=== PATIENT | male | born 1950 | race Caucasian/White ===

== ENCOUNTER 2019-05-12 06:57 | Day surgery (SDC) ==
[2019-04-30 09:24] LABS: BASO# 0.05 X1000 (0.0-0.2); BASO% 0.5 % (0.0-0.8); EOS# 0.07 X1000 (0.0-0.7); EOS% 0.7 % (0.0-10.0); HEMATOCRIT 43.4 % (42.0-52.0); HEMOGLOBIN 14.1 g/dL (14.0-18.0); IMM GRAN# 0.03 X1000 (0.0-0.04); IMM GRAN% 0.3 % (0.0-0.5); LYMPH# 2.87 X1000 (1.2-3.4); LYMPH% 26.9 % (20.5-51.1); MCH 28.7 PG (27-31); MCHC 32.5 g/dL (33-37); MCV 88.4 FL (81-99); MONO# 0.65 X1000 (0.11-0.59); MONO% 6.1 % (1.7-9.3); MPV 12.1 FL (7.4-10.4); NEUT# 7.01 X1000 (1.4-6.5); NEUT% 65.5 % (42.2-75.2); PLT 186 X1000 (130-400); RBC 4.91 XMIL (4.7-6.1); RDW 14.8 % (11.5-14.5); WBC 10.68 X1000 (4.8-10.8)
[2019-04-30 09:27] LABS: BILIRUBIN URINE NEGATIVE (NEGATIVE); BLOOD URINE NEGATIVE (NEGATIVE); COLOR YELLOW; GLUCOSE URINE NEGATIVE (NEGATIVE); KETONE URINE NEGATIVE (NEGATIVE); LEUKOCYTES URINE NEGATIVE (NEGATIVE); NITRITE URINE NEGATIVE (NEGATIVE); PROTEIN URINE NEGATIVE (NEGATIVE); TURBIDITY URINE CLEAR (CLEAR); URINE SOURCE CLEAN CATCH; UROBILINOGEN URINE 2 mg/dL (NORMAL)
[2019-04-30 09:30] LABS: UR EPITHELIAL CELLS <10 /HPF (<10); URINE BACTERIA NEGATIVE /HPF; URINE RBC <10 /HPF (<10); URINE WBC <10 /HPF (<10)
[2019-04-30 09:36] LABS: INR 1.09; PROTIME 14.3 Seconds (11.0-16.0); PTT 26.6 Seconds (22.3-41.8)
[2019-04-30 10:13] LABS: HEMOGLOBIN A1C 5.5 % (4.8-6.0)
[2019-04-30 10:53] LABS: CALCIUM 9.3 mg/dL (8.8-10.2); CREATININE 1.5 mg/dL (0.7-1.2); POTASSIUM 3.8 mmol/L (3.5-5.1)
[2019-05-12] MEDS ORDERED: DIPRIVAN 1% ONE ×2 (07:08→10:26)
[2019-05-12] MEDS ORDERED: FENTANYL ONE (07:14)
[2019-05-12] MEDS ORDERED: PEPCID ONE (07:32)
[2019-05-12] MEDS ORDERED: REGLAN ONE (07:32)
[2019-05-12] MEDS ORDERED: COLACE ONE (07:32)
[2019-05-12] MEDS ORDERED: LR 1,000 ML ONE (07:33)
[2019-05-12] MEDS ORDERED: KEFZOL 1 GM/D5W 2 GM/100 ML IVPB ONE (07:33)
[2019-05-12] MEDS ORDERED: CELEBREX ONE (07:33)
[2019-05-12] MEDS ORDERED: LYRICA ONE (07:33)
[2019-05-12] MEDS ORDERED: TORADOL ONE (08:24)
[2019-05-12] MEDS ORDERED: DURAMORPH ONE (08:24)
[2019-05-12] MEDS ORDERED: MARCAINE 0.25% PF ONE (08:24)
[2019-05-12] MEDS ORDERED: CYKLOKAPRON 1,000 MG/NS 1,000 MG/100 ML IVPB ONE (08:25)
[2019-05-12] MEDS ORDERED: VANCOMYCIN ONE (08:25)
[2019-05-12] MEDS ORDERED: SODIUM CHLORIDE 0.9% ONE (08:25)
[2019-05-12] MEDS ORDERED: EXPAREL 1.3% ONE (08:26)
[2019-05-12] MEDS ORDERED: ZOFRAN ONE (09:36)
[2019-05-12] MEDS ORDERED: OFIRMEV 1000 MG/ISOTONIC SOLN 1,000 MG/100 ML BOTTLE ONE (09:36)
[2019-05-12] MEDS ORDERED: DECADRON ONE (09:36)
[2019-05-12] MEDS ORDERED: EPHEDRINE ONE (09:36)
[2019-05-12 10:54] LABS: URINE SOURCE CLEAN CATCH
[2019-05-12 10:57] LABS: BILIRUBIN URINE NEGATIVE (NEGATIVE); BLOOD URINE NEGATIVE (NEGATIVE); COLOR YELLOW; GLUCOSE URINE NEGATIVE (NEGATIVE); KETONE URINE NEGATIVE (NEGATIVE); LEUKOCYTES URINE NEGATIVE (NEGATIVE); NITRITE URINE NEGATIVE (NEGATIVE); PH URINE 7.5; PROTEIN URINE NEGATIVE (NEGATIVE); SP GRAVITY URINE 1.016; TURBIDITY URINE CLEAR (CLEAR); UROBILINOGEN URINE NORMAL (NORMAL)
[2019-05-12 10:59] LABS: UR EPITHELIAL CELLS <10 /HPF (<10); URINE BACTERIA NEGATIVE /HPF; URINE RBC <10 /HPF (<10); URINE WBC <10 /HPF (<10)
[2019-05-12] MEDS ORDERED: NS 1,000 ML ONE (11:44)
--- NOTE | 2019-05-12 11:48 | OPERATIVE NOTE ---
PROCEDURE DATE: 05/12/2019 PREOPERATIVE DIAGNOSIS: Right knee degenerative joint disease. POSTOPERATIVE DIAGNOSIS: Right knee degenerative joint disease. PROCEDURE PERFORMED: Right total knee arthroplasty using [facility] size 7 femoral component, a size 8 tibial baseplate, a 12 mm articular insert, and a 38 mm patellar component. ANESTHESIA: Spinal. SURGEON: Ravi Last MD. ANVIL WORKER: SIL Cartagena. COMPLICATIONS: None. BLOOD LOSS: Minimal. TOURNIQUET TIME: Approximately 1 hour. DESCRIPTION OF PROCEDURE: The patient was brought to the operative suite and placed in the supine position. After successful administration of spinal anesthesia, a well-padded tourniquet was placed on the right proximal thigh. The right lower extremity was prepped and draped in the usual sterile fashion. Leg was exsanguinated. Tourniquet was insufflated to 350 torr. A longitudinal incision was then made beginning at the superior pole of the patella and extended distally to the tibial tuberosity. The medial arthrotomy was then made with the medial capsule elevated off the medial tibial plateau. The ACL, PCL, medial meniscus, and lateral meniscus were excised. A drill was entered in the center of the distal femur. Intramedullary guide was placed. Distal cutting block was pinned into place. The distal cut was made with the oscillating saw. Marginal osteophytes were removed with a rongeur. Attention was then directed to the tibia. A drill was entered in the center of the tibia. Intramedullary guide was placed. The line was checked with drop amy, referencing off the anterior cortex of the tibia and the second ray of the foot, taking 4 mm off the low side of the tibia which, in this case, was laterally. The extension gap was checked and balanced at 12 mm. Flexion gap was set to 21 to account for the posterior condyle of the femoral component. Once the rotation was set, it was sized to a size 7. A size 7 cutting block was pinned in place. The anterior cuts, chamfer cuts, and posterior condylar cuts were made with the oscillating saw. Marginal osteophytes were removed with a rongeur. A box cutting block was pinned into place. Box cut was made a box osteotome and oscillating saw. Posterior condylar osteophytes were removed with a curved osteotome and rongeur. Attention was then directed back to the tibia. The tibia sized to a size 8. A size 8 guide was used for the fin punch. Marginal osteophytes were removed. The tibial trial, femoral trial, and 12 mm articular insert were placed, taken through a range of motion, and found have excellent alignment, balancing, and range of motion. Attention was then directed to the patella. Then 9 mm of the articular surface of patella were removed with an oscillating saw. The patella sized to a size 38. A size 38 guide was used to drill the peg holes. The lateral facet was chamfered 30 to 45 degrees. The patellar trial was placed, taken through a range of motion, and found to have excellent patella tracking. All trials were then removed. The knee was copiously irrigated with normal saline containing irrigant, being certain all bone and cement debris was removed, and then it was dried. The tibial component, femoral component, and patellar component were cemented into place, excess cement being removed with a [place]. Once the cement had hardened, excess cement was again removed with an osteotome. The knee was again copiously irrigated and dried, being certain all bone debris was removed and cement debris. The trial articular insert was removed. The knee was copiously infiltrated with Exparel including the posterior capsule, anterior capsule, anterior musculature, and subcutaneous tissue. The tourniquet was deflated. Hemostasis was obtained with electrocautery but it continued to bleed posteriorly when it was brought out into extension. Therefore, we placed a drain, exiting superolaterally. The definitive articular insert was locked in place. The knee was again copiously irrigated with normal saline containing irrigant and Vashe irrigation. The medial arthrotomy was closed with 0 V-Loc. The skin edge was approximated with 2-0 Vicryl. Skin was closed with Prineo and a sterile dressing applied. The patient tolerated the procedure well without complications. At the end of the procedure, all counts were correct x2. The patient was transferred to the recovery room in stable condition. cc: Ravi Last MD
[2019-05-12] MEDS: DILAUDID ONE ×2 (11:57→12:00)
[2019-05-12] MEDS ORDERED: MILK OF MAGNESIA PO PRN (12:45)
[2019-05-12] MEDS ORDERED: ZOFRAN ODT PO PRN (12:45)
[2019-05-12] MEDS ORDERED: OXY IR PO PRN ×2 (12:45)
[2019-05-12] MEDS ORDERED: ZOFRAN IV PRN (12:45)
[2019-05-12] MEDS ORDERED: MORPHINE IV PRN ×3 (12:45)
[2019-05-12] MEDS: ULTRAM PO SCH ×2 (13:38→18:58)
[2019-05-12] MEDS: TYLENOL PO SCH ×2 (13:38→18:58)
[2019-05-12] MEDS: NS 1,000 ML IV SCH (13:39)
[2019-05-12] MEDS: KEFZOL 2 GM/D5W 2 GM/50 ML IVPB IV SCH (16:44)
[2019-05-12] MEDS: LYRICA PO SCH (20:52)
[2019-05-12] MEDS: COLACE PO SCH (20:52)
[2019-05-12] MEDS: GLUCOPHAGE PO SCH (20:52)
[2019-05-12] MEDS: PERIDEX MT SCH (20:52)
[2019-05-12] MEDS ORDERED: ZOCOR PO SCH (21:00)
[2019-05-12] MEDS ORDERED: DESYREL PO SCH (21:00)
[2019-05-13] MEDS: KEFZOL 2 GM/D5W 2 GM/50 ML IVPB IV SCH (01:30)
[2019-05-13] MEDS: TYLENOL PO SCH ×2 (02:02→06:28)
[2019-05-13] MEDS: ULTRAM PO SCH ×2 (02:02→06:28)
[2019-05-13] MEDS: NS 1,000 ML IV SCH (02:05)
[2019-05-13 06:14] LABS: HEMATOCRIT 32.2 % (42.0-52.0); HEMOGLOBIN 10.4 g/dL (14.0-18.0)
[2019-05-13 06:34] LABS: CALCIUM 8.2 mg/dL (8.8-10.2); CREATININE 1.2 mg/dL (0.7-1.2); POTASSIUM 4.2 mmol/L (3.5-5.1)
[2019-05-13] MEDS ORDERED: PRILOSEC PO SCH (07:00)
[2019-05-13] MEDS ORDERED: SALINE LOCK IV FLUID XX ONE (07:56)
[2019-05-13] MEDS: GLUCOPHAGE PO SCH (08:55)
[2019-05-13] MEDS: COLACE PO SCH (08:55)
[2019-05-13] MEDS: LYRICA PO SCH (08:55)
[2019-05-13] MEDS: PERIDEX MT SCH (08:57)
[2019-05-13] MEDS ORDERED: ASPIRIN PO SCH (09:00)
[2019-05-13] MEDS ORDERED: NON-FORMULARY MED (Meloxicam 15 MG) PO SCH (09:00)
[2019-05-13] MEDS ORDERED: PRINZIDE 10/12.5MG PO SCH (09:00)
[2019-05-13] MEDS ORDERED: MOBIC PO SCH (09:00)
[2019-05-13] MEDS ORDERED: FLOMAX PO SCH (09:00)
[2019-05-13] MEDS ORDERED: NORVASC PO SCH (09:00)
[2019-05-13] MEDS ORDERED: TOPROL XL PO SCH (09:00)
[2019-05-13 11:06] VITALS: BP 123/65
--- NOTE | 2019-05-13 11:16 | DISCHARGE SUMMARY ---
ADMISSION DATE: 05/12/2019 DISCHARGE DATE: 05/13/2019 DISCHARGE DIAGNOSIS: Right knee degenerative joint disease status post right total knee arthroplasty. DISCHARGE MEDICATIONS: See discharge medication list. DISPOSITION: The patient discharged home with outpatient physical therapy. Instructed to return for any signs or symptoms of infection or deep venous thrombosis. Instructed to return to see Dr. Last next . HOSPITAL COURSE: On the day of admission, patient underwent a right total knee arthroplasty. His postoperative course was unremarkable. At discharge, he is afebrile, tolerating a regular diet ambulating well with physical therapy. His wound is clean, dry, and intact without sign of infection. He is discharged to rehab in stable condition with instructions to follow up as described above. cc: Ravi Last MD [facility]
== END 2019-05-13 13:33 | disposition home or self-care (01) ==
LOC: OR 06:57 → 4N 06:57 → OR 05-13 13:33
PROVIDERS: ATTEND Orthopaedic Surgery

== ENCOUNTER 2019-06-11 15:30 | Inpatient (IN) ==
[2019-06-11 15:54] LABS: BASO# 0.09 X1000 (0.0-0.2); BASO% 0.8 % (0.0-0.8); EOS# 0.07 X1000 (0.0-0.7); EOS% 0.6 % (0.0-10.0); HEMATOCRIT 35.7 % (42.0-52.0); HEMOGLOBIN 10.9 g/dL (14.0-18.0); IMM GRAN# 0.07 X1000 (0.0-0.04); IMM GRAN% 0.6 % (0.0-0.5); LYMPH# 2.53 X1000 (1.2-3.4); MCH 26.7 PG (27-31); MCHC 30.5 g/dL (33-37); MCV 87.3 FL (81-99); MONO# 0.64 X1000 (0.11-0.59); MONO% 5.8 % (1.7-9.3); MPV 11.3 FL (7.4-10.4); NEUT# 7.58 X1000 (1.4-6.5); NEUT% 69.2 % (42.2-75.2); PLT 195 X1000 (130-400); RBC 4.09 XMIL (4.7-6.1); RDW 14.2 % (11.5-14.5); WBC 10.98 X1000 (4.8-10.8)
[2019-06-11 15:59] LABS: INR 1.14; PROTIME 14.8 Seconds (11.0-16.0)
[2019-06-11 16:00] LABS: PTT 31.1 Seconds (22.3-41.8)
--- NOTE | 2019-06-11 16:22 | PROVIDER DOCUMENTATION ---
HPI-General Adult - General Chief Complaint: Weakness Stated Complaint: DIZZY/WEAK Time Seen by Provider: 06/11/19 15:49 Source: patient Allergies/Adverse Reactions: Patient Allergies Allergy/AdvReac Type Severity Reaction Status Date / Time No Known Allergies Allergy Verified 04/30/19 08:52 Home Medications: Home Medication List Medication Instructions Recorded Confirmed Last Taken Type Amlodipine Besylate 5 mg PO DAILY 05/11/17 04/30/19 03/10/19 03:00 History Lisinopril/Hydrochlorothiazide 2 tab PO DAILY 05/11/17 04/30/19 03/09/19 09:00 History [Lisinopril-Hctz 20-25 mg Tab] Meloxicam 15 mg PO DAILY 05/11/17 04/30/19 03/09/19 09:00 History Omeprazole 40 mg PO DAILY 05/11/17 04/30/19 03/09/19 09:00 History Simvastatin 40 mg PO DAILY 05/11/17 04/30/19 03/09/19 21:00 History Tamsulosin HCl 0.4 mg PO DAILY 05/11/17 04/30/19 03/09/19 09:00 History Metoprolol [Lopressor] 100 mg PO DAILY 07/06/17 04/30/19 03/10/19 03:00 History Metformin HCl 500 mg PO BID 03/06/19 04/30/19 03/09/19 21:00 History Trazodone [Desyrel] 50 mg PO QHS 03/06/19 04/30/19 03/09/19 21:00 History Acetaminophen [Tylenol] 1,000 mg PO Q6H tab 05/13/19 Unknown Rx Aspirin 325 mg PO DAILY tab 05/13/19 Unknown Rx Docusate Sodium [Colace] 100 mg PO BID cap 05/13/19 Unknown Rx Magnesium Hydroxide [Milk of 30 ml PO Q6H PRN PRN udc 05/13/19 Unknown Rx Magnesia] Meloxicam [Mobic] 15 mg PO DAILY #30 tab 05/13/19 Unknown Rx Oxycodone I.r. [Oxy Ir] 5 mg PO Q3H PRN PRN #40 tab 05/13/19 Unknown Rx Pregabalin [Lyrica] 75 mg PO BID #60 cap 05/13/19 Unknown Rx Tramadol [Ultram] 100 mg PO Q6H #120 tab 05/13/19 Unknown Rx - History of Present Illness -Gen Adult Nature of Presenting Problems: 68 YOM PRESENTS WITH C/O GENERALIZED WEAKNESS AND DIZZINESS THAT BEGAN YESTERDAY. HE REPORTS DECREASED ABILITY TO AMBULATE, GENERALIZED MUSCLE AND JOINT ACHES/PAINS. HE DENIES CP, COUGH, FEVER, CHILLS, CONGESTION, SORE THROAT, N/V/D. HE REPORTS SOB THAT IS AT HIS BASELINE. DENIES FALLS. HE REPORTS HE WAS RECENTLY PLACED ON LASIX AND HAS A CARDIOLOGY APPT ON SUNDAY OF NEXT WEEK FOR FOLLOW UP. Location of Pain/Injury: reports: generalized Pain Radiation: reports: no radiation Quality of Pain: reports: aching Severity: reports: moderate Onset/Duration: reports: other (YESTERDAY MORNING UPON WAKING) Timing: reports: still present Context/Activities at Onset: reports: none Modifying Factors: improves with: nothing Associated Symptoms: reports: dizziness, fatigue, muscle aches, weakness Similar Symptoms Previously?: No Recently seen or treated by another doctor?: Yes (RECENTLY STARTED ON LASIX ) Review of Systems - Adult - REVIEW OF SYSTEMS - ADULT Constitutional: reports: no symptoms reported. denies: see HPI, chills, fever, fatique, night sweats, weight gain, weight loss, other Eyes: reports: no symptoms reported. denies: see HPI, discharge, dry eyes, decreased vision, blurred vision, double vision, eye pain, redness, other Ears, Nose, Mouth & Throat: reports: no symptoms reported. denies: see HPI, ear discharge, ear pain, hearing loss, tinnitus, epistaxis, sinus problem, nose pain, loose teeth, mouth/dental pain, mouth swelling, hoarseness, throat pain, throat swelling, other Cardiovascular: reports: no symptoms reported. denies: see HPI, chest pain, edema, heart murmur, irregular heart rate, orthopnea, palpitations, poor circulation, PND, syncope, other Respiratory: reports: see HPI, shortness of breath (CHRONIC AND AT BASELINE PER PATIENT). denies: no symptoms reported, chronic cough, cough, dyspnea on exertion, excessive sputum production, hemoptysis, pleurisy, wheezing, other Gastrointestinal: reports: no symptoms reported. denies: see HPI, abdominal pain, hematemesis, constipation, diarrhea, difficulty swallowing, frequent heartburn, nausea, poor appetite, rectal bleeding, vomiting, other Genitourinary: reports: no symptoms reported. denies: see HPI, dysuria, discharge, frequency, flank pain, frequent UTI's, hematuria, hesitency, incontinence, urinary retention, urgency, other Musculoskeletal: reports: see HPI, muscle aches, muscle weakness. denies: no symptoms reported, bone pain, back pain, frequent leg cramps, joint pain, joint swelling, neck pain, other Integumentary: reports: no symptoms reported. denies: see HPI, hives, hair loss, itching, mole changes, nail changes, rash, skin sores/ulcer, skin thickening, other Neurological: reports: see HPI, dizziness/vertigo. denies: no symptoms reported, ataxia, headache/migraines, loss of balance, numbness, paresthesia, seizure, slurred speech, syncope, tremors, other Psychiatric: reports: no symptoms reported. denies: see HPI, anxiety, anti- depressant use, alcohol/drug dependence, depression, emotional problems, insomnia, panic attacks, suicidal thoughts, other Endocrine: reports: no symptoms reported. denies: see HPI, change in skin pigment, excessive sweating, goiter, cold intolerance, heat intolerance, increased hunger, increased thirst, polyuria, other Hematologic/Lymphatic: reports: no symptoms reported. denies: see HPI, blood clots, easy bruising, low blood count, lymphedema, prolonged bleeding, swollen lymph nodes, transfusions, other Allergic/Immunologic: reports: no symptoms reported. denies: see HPI, allergic reactions, allergic rhinitis, asthma, eczema, food allergy, frequent infections, hay fever, hives, positive PPD, urticaria, other Past History - Adult - PAST MEDICAL HISTORY-ADULT Review of Records: reports: Nursing Assessment Review, Social history reviewed & non-contributory. Major Childhood Illnesses: reports: denies history Cardiovascular: reports: HTN, hyperlipidemia Musculoskeletal: reports: arthritis - PRIOR SURGERIES/PROCEDURES Surgical/Procedure History: reports: orthopedic (extremity) (R leg) - IMMUNIZATION STATUS Childhood Immunizations: See Nurse Assessment Flu Vaccine: See Nurse Assessment - FAMILY HISTORY Family History: reviewed, not pertinent Physical Exam-General - PHYSICAL EXAM-ADULT Initial Vital Signs Reviewed: Yes - CONSTITUTIONAL General Appearance: alert, no apparent distress - EYES Eyes: PERRL/EOMI, pink conjunctivae - HEAD, EARS, NOSE, MOUTH & THROAT HENMT: normocephalic/atraumatic, moist mucous membranes, normal ENT inspection - NECK Neck: non-tender, full range of motion, supple - RESPIRATORY Respiratory: chest non-tender, lungs clear, normal breath sounds, no pleuratic chest pain, no respiratory distress, no accessory muscle use - CARDIOVASCULAR Cardiovascular: normal peripheral pulses, regular rate, rhythm, no edema, no gallop, no JVD, no murmur - GASTROINTESTINAL (ABDOMEN) Abdominal Exam: normal bowel sounds, non tender, soft - LYMPHATIC Lymphatic: no adenopathy - MUSCULOSKELETAL Back Exam: normal inspection, no CVA tenderness, no vertebral tenderness Extremity: normal range of motion, non-tender, normal gait, other (GENERALIZED WEAKNESS) Peripheral Pulses: radial (R): 2+, radial (L): 2+ - SKIN Integumentary: normal color, normal turgor, warm/dry - NEUROLOGIC Neurologic: grossly normal - PSYCHIATRIC Psych/Mental Status: normal mood/affect, oriented x 3 Progress - PLAN OF CARE/RESULTS Progress/Plan/Lab Results: Vital Signs - 8 hr 06/11/19 15:32 Temperature 97.4 F L Pulse Rate 73 Respiratory Rate 16 Blood Pressure 92/65 O2 Sat by Pulse Oximetry 100 Laboratory Results - last 24 hr 06/11/19 06/11/19 06/11/19 15:40 15:40 15:40 WBC 10.98 H RBC 4.09 L Hgb 10.9 L Hct 35.7 L MCV 87.3 MCH 26.7 L MCHC 30.5 L RDW Std Deviation 14.2 Plt Count 195 MPV 11.3 H Immature Gran % (Auto) 0.6 H Neut % (Auto) 69.2 Lymph % (Auto) 23.0 Rhea % (Auto) 5.8 Eos % (Auto) 0.6 Baso % (Auto) 0.8 Immature Gran # (Auto) 0.07 H Neut # (Auto) 7.58 H Lymph # (Auto) 2.53 Rhea # (Auto) 0.64 H Eos # (Auto) 0.07 Baso # (Auto) 0.09 Segmented Neutrophils Cancelled Band Neutrophils Cancelled Lymphocytes Cancelled Monocytes Cancelled Eosinophils Cancelled Basophils Cancelled Metamyelocytes Cancelled Myelocytes Cancelled Promyelocytes Cancelled Nucleated RBCs Cancelled Atypical Lymphocytes Cancelled Blast Cells Cancelled Hypochromia Cancelled Vacuolization Cancelled Toxic Granulation Cancelled Dohle Bodies Cancelled Large Platelets Cancelled Polychromasia Cancelled Poikilocytosis Cancelled Basophilic Stippling Cancelled Anisocytosis Cancelled Microcytosis Cancelled Macrocytosis Cancelled Spherocytes Cancelled Sickle Cells Cancelled Target Cells Cancelled Ovalocytes Cancelled Stomatocytes Cancelled [place] Bodies Cancelled Omar Cells Cancelled Unidentified Cells Cancelled Schistocytes Cancelled PT 14.8 INR 1.14 PTT (Actin FS) 31.1 Troponin T High Sens 66 H Orders Category Date Time Status Cardiac Monitoring DIRECTED Care 06/11/19 15:38 Active Saline Loc NOW Care 06/11/19 15:38 Active CHEST-2 VIEWS [RAD] Stat Exams 06/11/19 15:38 Taken CBC WITH ELECTRONIC DIFF [HEME] Stat Lab 06/11/19 15:40 Completed CK PROFILE [SP CHEM] Stat Lab 06/11/19 15:40 Received COMPREHENSIVE METABOLIC PANEL [CHEM] Stat Lab 06/11/19 15:40 Received PRO B-NATRIURETIC PEPTIDE Stat Lab 06/11/19 15:40 Received PROTIME WITH INR [COAG] Stat Lab 06/11/19 15:40 Completed PTT [COAG] Stat Lab 06/11/19 15:40 Completed TROPONIN T HIGH SENSITIVITY Stat Lab 06/11/19 15:40 Completed CP/SOB/Palp >45 yrs of Age Stat Oth 06/11/19 15:37 Ordered EKG [EKG] Stat Ther 06/11/19 15:38 Ordered 1650: UPDATED PATIENT ON NEED FOR ADMISSION, WILL CALL HOSPITALIST ONCE PATIENT IS IN ER ROOM. PT AWARE AND IN AGREEMENT Result Diagrams: 06/11/19 15:40 06/11/19 15:40 - EKG 1 Time of EKG reading by physician:: 16:00 EKG Read and Signed by:: Jered Batista EKG Interpretation (*Must complete 3 of following elements*): Normal Rate: 76 Rhythm: NSR WITH SINUS ARRYTHMIA [place]: normal QRS: normal AR Interval: normal ST Wave: normal Prior EKG Comparison: changes noted (NO PVC'S ON CURRENT EKG) - XRAY 1 XRAY Study: Chest Impression: See EMR Report (CHEST-2 VIEWS - 06/11/2019 INDICATION: weakness COMPARISON: 05/29/2019 FINDINGS: The lungs are normally expanded and clear. Heart size and mediastinal contours are normal. No pneumothorax or pleural effusion. IMPRESSION: Negative exam. Electronically signed by Danilo Ingram 06/11/2019 4:26 PM 06/11/19 1626 Interpreting Physician: Danilo Ingram MD Dictated Date/Time: 06/11/19 1625 cc: Jered Batista MD; Aurelia Alicia MD) - CONSULTS/PCP/HOSPITALIST Notification #1 *Consult/PCP/Hospitalist*: sriram arcos Time Discussed: 17:47 Consult Disposition: Admit Departure - Departure Date of Disposition Decision: 06/11/19 Time of Disposition Decision: 17:47 DIAGNOSIS: MARI (acute kidney injury) Disposition: ADMITTED INPATIENT 09 Certified Medical Emergency: Emergent Condition: Stable Referrals and Follow-Ups: Aurelia Alicia MD [Primary Care Provider] - - Critical Care Note This patient required my direct & personal management of CC.: No Attestation - Physician/ JANES Attestation Patient care was provided by Advanced Practice Provider:: Yes Advanced Practice Provider:: Merlene Mota Advanced Practice Provider documentation review:: The Mid-level provider documentation, treatment plan and medical decision making was reviewed by the physician who agrees with all treatment and medical decision making by the P. The physician spent face to face time with patient:: No Advanced Practice Provider documentation review:: Supervising physician onsite and consulted in the evaluation and care of this patient. The physician did not have a face to face encounter with the patient.
--- NOTE | 2019-06-11 16:28 | Diag Imaging Result Doc PS360 ---
CHEST-2 VIEWS - 06/11/2019 INDICATION: weakness COMPARISON: 05/29/2019 FINDINGS: The lungs are normally expanded and clear. Heart size and mediastinal contours are normal. No pneumothorax or pleural effusion. IMPRESSION: Negative exam. Electronically signed by Danilo Ingram 06/11/2019 4:26 PM
--- NOTE | 2019-06-11 16:38 | EKG Report ---
Test Performed on : 06/11/2019 3:44:20 PM Test Reason : weakness Blood Pressure : / mmHG Vent. Rate : 076 BPM Atrial Rate : 076 BPM P-R Int : 150 ms QRS Dur : 078 ms QT Int : 382 ms P-R-T Axes : -01 019 061 degrees QTc Int : 429 ms Normal sinus rhythm. with sinus arrhythmia. Normal ECG When compared with ECG of 06-MAR-2019 15:02, premature ventricular complexes. are no longer present Unconfirmed Result
[2019-06-11 16:41] LABS: ALB/GLOB RATIO 1.3; ALBUMIN 3.5 g/dL (3.5-5.0); CALCIUM 8.5 mg/dL (8.8-10.2); CREATININE 2.3 mg/dL (0.7-1.2); POTASSIUM 3.8 mmol/L (3.5-5.1); TOTAL BILIRUBIN 0.29 mg/dL (0.20-1.00); TOTAL PROTEIN 6.3 g/dL (6.3-8.3)
[2019-06-11 17:33] LABS: MAGNESIUM 1.5 mg/dL (1.5-2.7); PHOSPHORUS 3.1 mg/dL (2.7-4.5)
[2019-06-11] MEDS ORDERED: NS 1,000 ML IV ONE (17:43)
[2019-06-11] MEDS ORDERED: TYLENOL PO PRN (17:56)
[2019-06-11] MEDS ORDERED: ZOFRAN IV PRN (17:56)
[2019-06-11] MEDS ORDERED: NS 1,000 ML IV SCH (18:00)
[2019-06-11 18:35] LABS: URINE SOURCE CLEAN CATCH
[2019-06-11 18:42] LABS: BILIRUBIN URINE SMALL (NEGATIVE); BLOOD URINE NEGATIVE (NEGATIVE); COLOR YELLOW; GLUCOSE URINE NEGATIVE (NEGATIVE); KETONE URINE TRACE mg/dL (NEGATIVE); LEUKOCYTES URINE NEGATIVE (NEGATIVE); NITRITE URINE NEGATIVE (NEGATIVE); PROTEIN URINE 30 mg/dL (NEGATIVE); SP GRAVITY URINE 1.028; TURBIDITY URINE CLEAR (CLEAR); UR EPITHELIAL CELLS <10 /HPF (<10); URINE BACTERIA NEGATIVE /HPF; URINE RBC <10 /HPF (<10); URINE WBC <10 /HPF (<10); UROBILINOGEN URINE 3 mg/dL (NORMAL)
[2019-06-11] MEDS: MAGNESIUM SULFATE 2 GM/S.W.I. 2 GM/50 ML IVPB IV SCH ×2 (19:36→23:01)
--- NOTE | 2019-06-11 20:46 | HISTORY AND PHYSICAL ---
PRIMARY CARE PROVIDER: Dr. Alicia. CHIEF COMPLAINT: Dizziness, lightheadedness. HISTORY OF PRESENT ILLNESS: Mr. Dru Moy is a 68-year-old male with a medical history of hypertension, COPD, GERD, hyperlipidemia, and diabetes. He states approximately 8 days ago he was started on Lasix 40 mg a day for 5 days, and then on Sunday started it every other day. That was started because of his bilateral lower extremity edema. Yesterday morning when he woke up, he started to feel weak and dizzy every time he stood up. The symptoms did not subside. He decided to come in and was found to have some acute kidney injury and mild hypotension secondary to the dehydration, so we are going to admit him to rehydrate him. PAST MEDICAL HISTORY: 1. Hypertension. 2. GERD. 3. Hyperlipidemia. 4. BPH. 5. COPD. 6. Diabetes mellitus type 2. 7. Insomnia. 8. Arthritis. 9. Diabetic neuropathy. SURGICAL HISTORY: 1. Right knee replacement. 2. Left carpal tunnel. 3. Right ankle/leg surgical repair from a fracture. SOCIAL HISTORY: He smoked 2 packs per day between 1984 and 1989. Denies alcohol or illicit drug use. He is . He has adult children. He is retired from [employer] FAMILY HISTORY: Mother had to have coronary artery bypass grafting at age 47. Father unknown. ALLERGIES: No known drug allergies. HOME MEDICATIONS: 1. He was taking Lasix 40 every day for 5 days, then every other day, which started Sunday. 2. Trazodone 50 mg p.o. nightly. 3. Amlodipine besylate 5 mg p.o. daily. 4. Lisinopril-hydrochlorothiazide 20/25 mg 2 tablets p.o. daily. 5. Lopressor 100 mg p.o. daily. 6. Metformin 500 mg p.o. twice daily. 7. Omeprazole 40 mg p.o. daily. 8. Simvastatin 40 mg p.o. daily. 9. Flomax 0.4 mg p.o. daily. 10. Mobic 15 mg p.o. daily. REVIEW OF SYSTEMS: Fourteen-point review of systems is completed, and all are negative except as above mentioned above in the HPI. PHYSICAL EXAMINATION: VITAL SIGNS: Temperature 97.3, heart rate 73, respiratory rate 16, blood pressure 92/65, O2 saturation 100% on room air. GENERAL: Mr. Dru Moy is a 68-year-old male. He is in no acute distress. He is able answer questions appropriately. HEENT: Atraumatic, normocephalic. Pupils equal, round, and reactive to light. Extraocular movements intact. Mucous membranes are moist. NECK: Trachea midline. CARDIOVASCULAR: S1, S2. Regular rate and rhythm. No rubs, gallops, murmurs. He has about 1 to 2+ lower extremity pitting edema. He has +2 dorsalis and radial pulses. Negative JVD or carotid bruits. PULMONARY: Clear to auscultation. Bilateral breath sounds. No accessory muscle use or work of breathing noted. GI: Soft, nontender, nondistended. Positive bowel sounds x4. EXTREMITIES: Moves all extremities equally. Full neck range of motion. NEUROLOGIC: A and O x3. Follows commands. Sensory is intact. SKIN: Warm, dry, intact. LABORATORY DATA: White blood cells 10,000, hemoglobin 10, hematocrit 35, platelet count 195. INR is 1.14, PTT is 31.1. Sodium 140, potassium 3.8, BUN 36, creatinine 2.3, glucose 129, calcium 8.5, phosphorus 3.1, magnesium 1.5. Bilirubin 0.29, AST 13, ALT 7. CK 112, troponin 66, proBNP 346, albumin 3.5. Urinalysis: 30 protein, trace ketones, small bilirubin, 3 urobilinogen. Urine random creatinine is 369. Urine random sodium is 41. Urine random urea is 356. IMAGING: Chest x-ray: Negative exam. EKG: Normal sinus rhythm, rate 76, QTc 429. ASSESSMENT AND PLAN: 1. Acute kidney injury, most likely prerenal with dehydration, but could be intrarenal secondary to nephrotoxic medications such as Lasix, amlodipine, and lisinopril. So, we will hold nephrotoxic medications and give him some fluid and recheck creatinine in the morning. We will also get a renal ultrasound and renal labs ordered. Urine studies are ordered. 2. Diabetes mellitus type 2. Will do pattern blood glucoses and sliding-scale insulin. 3. Gastroesophageal reflux disease. Continue proton pump inhibitor. 4. Hyperlipidemia. Continue statin. 5. Benign prostatic hypertrophy. Continue tamsulosin. 6. Chronic obstructive pulmonary disease. No exacerbation. 7. Insomnia. Continue trazodone. 8. Arthritis. Will hold the Mobic for now, as it can be nephrotoxic. 9. Diabetic neuropathy. Continue with Lyrica. 10. Recent right knee replacement. He was on stool softeners and Oxy, but he has been off with that. 11. Deep venous thrombosis prophylaxis, sequential compression devices. Dictated by SIL Garg for Jesse Ng MD cc: SIL Garg MD I agree with most components of history, physical, assessment and plan. A separate addendum has been dictated. MTDD
--- NOTE | 2019-06-11 20:51 | HISTORY AND PHYSICAL ---
ADDENDUM: I agree with most components of history, physical, assessment, and plan. In brief, Mr. Moy is a 68-year-old man with past medical history of essential hypertension, noninsulin-dependent diabetes mellitus, arthritis, status post right knee arthroplasty, who comes in with chief complaints of dizziness, weakness of about 24 hours duration. He recently had seen his regular doctor, and he was started on Lasix for his bilateral lower extremity edema that he has been taking for about 1 week now. SUBJECTIVE: Mr. Moy denies any chest pain, shortness of breath, nausea, vomiting, abdominal pain. He denies any burning micturition or cough. PHYSICAL EXAMINATION: VITAL SIGNS: Temperature of 97.4 degrees, pulse 73, respiratory rate 16, blood pressure 120/70 on monitor, saturating 100% on room air. GENERAL: Not in acute distress. HEENT: Oral cavity is moist. LUNG: Air entry bilaterally equal. No wheeze or crackles. CARDIOVASCULAR: S1, S2 normal. No murmur, gallop or rub. ABDOMEN: Soft, obese, nontender. Active bowel sounds. EXTREMITIES: He has bilateral lower extremity edema affecting more on the right than on the left. NEUROLOGIC: He is alert and oriented x3. LABORATORY DATA: Suggestive of WBC of 10.9, hemoglobin 10.9, platelets of 195,000. He has INR of 1.1. He has acute kidney injury with BUN of 36, creatinine 2.3. His proBNP is slightly elevated at 346. Urinalysis did not have pyuria. ASSESSMENT AND PLAN: 1. Acute kidney injury, likely medication induced in the setting of use of Lasix, hydrochlorothiazide, lisinopril and meloxicam. I am holding all of these medications and giving him intravenous fluids and follow up with kidney function tomorrow. 2. Hypomagnesemia. I am repleting his hypomagnesemia. 3. History of essential hypertension and noninsulin-dependent diabetes mellitus. I will keep him on sliding scale insulin, and I will add home metoprolol and amlodipine. 4. Bilateral lower extremity swelling. Follow up echocardiogram and ultrasound of lower extremity. DISPOSITION: I will monitor patient inside the hospital. Plan of care discussed with the patient and his family at bedside. Their questions have been satisfactorily answered. cc: Jesse Ng MD
[2019-06-11] MEDS ORDERED: ZOCOR PO SCH (21:30)
[2019-06-11] MEDS: HUMULIN R SUBQ SCH (21:52)
[2019-06-12 05:30] LABS: BASO# 0.03 X1000 (0.0-0.2); BASO% 0.5 % (0.0-0.8); EOS% 1.6 % (0.0-10.0); HEMATOCRIT 31.6 % (42.0-52.0); HEMOGLOBIN 9.7 g/dL (14.0-18.0); LYMPH# 1.77 X1000 (1.2-3.4); LYMPH% 28.1 % (20.5-51.1); MCH 27.1 PG (27-31); MCHC 30.7 g/dL (33-37); MCV 88.3 FL (81-99); MONO# 0.51 X1000 (0.11-0.59); MONO% 8.1 % (1.7-9.3); MPV 11.5 FL (7.4-10.4); NEUT# 3.88 X1000 (1.4-6.5); NEUT% 61.7 % (42.2-75.2); PLT 140 X1000 (130-400); RBC 3.58 XMIL (4.7-6.1); RDW 14.3 % (11.5-14.5); WBC 6.29 X1000 (4.8-10.8)
[2019-06-12 06:10] LABS: ALB/GLOB RATIO 1.1; CALCIUM 8.1 mg/dL (8.8-10.2); CREATININE 1.7 mg/dL (0.7-1.2); MAGNESIUM 2.4 mg/dL (1.5-2.7); POTASSIUM 3.4 mmol/L (3.5-5.1); TOTAL BILIRUBIN 0.33 mg/dL (0.20-1.00); TOTAL PROTEIN 5.8 g/dL (6.3-8.3)
[2019-06-12] MEDS: HUMULIN R SUBQ SCH ×2 (06:15→13:55)
[2019-06-12 07:55] VITALS: BP 129/66
[2019-06-12] MEDS ORDERED: LOPRESSOR PO SCH (09:00)
[2019-06-12] MEDS ORDERED: ZOCOR PO SCH (09:00)
[2019-06-12] MEDS ORDERED: NORVASC PO SCH (09:00)
[2019-06-12] MEDS ORDERED: PRILOSEC PO SCH (09:00)
[2019-06-12] MEDS ORDERED: FLOMAX PO SCH (09:00)
[2019-06-12] MEDS ORDERED: TOPROL XL PO SCH (09:00)
[2019-06-12] MEDS ORDERED: KLOR-CON PO SCH (09:15)
--- NOTE | 2019-06-12 10:53 | DISCHARGE SUMMARY ---
ADMISSION DATE: 06/11/2019 DISCHARGE DATE: 06/13/2019 DISCHARGE DISPOSITION: Home. DISCHARGE CONDITION: Hemodynamically stable. His blood pressure has normalized. His kidney function is improving. He is making adequate amount of urine. I instructed to him about repeating kidney function once he sees his regular physician within 7 days' time, not taking lisinopril, hydrochlorothiazide, Lasix, as well as Mobic, and he understood it. DISCHARGE DIAGNOSES: 1. Pre-renal acue renal failure, Acute kidney injury due to use of meloxicam, newly started Lasix, on top of hydrochlorothiazide and lisinopril. 2. Hypomagnesemia. 3. Weakness due to acute kidney injury and uremia. 4. Bilateral lower extremity swelling. 5. Obesity with BMI >36. OTHER DIAGNOSES: 1. History of ucg-rbgwgdd-pcbibrply diabetes mellitus type 2. 2. Chronic gastroesophageal reflux disease. 3. Hyperlipidemia. 4. Benign prostatic hypertrophy. 5. Essential hypertension. 6. Remote history of smoking about 2 packs per day for 5 years, which he quit in 1989. 7. Osteoarthritis. 8. Diabetic neuropathy. 9. Recent right knee replacement. VITALS: At the time of discharge, temperature 98.1 degrees, pulse 63, respiratory rate 16, blood pressure 129/66, saturating 100% on room air. PHYSICAL EXAMINATION: Mr. Moy is not in acute distress. Obese, man. Oral cavity is moist. Air entry bilaterally equal. No wheeze, rhonchi, crackles. S1 and S2 are normal. No murmur, rub, or gallop. Abdomen is soft, nontender. He does have mild bilateral lower extremity edema, more on the right than on the left. SIGNIFICANT LABS: At the time of hospital admission and discharge, WBCs 6000, hemoglobin 9.7, platelets 140,000. He has a BUN of 35, creatinine of 1.7. His creatinine improved from 2.3 on admission to 1.7 after intravenous fluids. His blood glucose is 91. No microbiological data. Chest x-ray on admission did not have any acute cardiopulmonary process. Electrocardiogram on presentation had normal sinus rhythm with sinus arrhythmia. HOSPITAL COURSE SUMMARY: Mr. Moy is a 68-year-old, man who recently had a right total knee arthroplasty in April 2020, who had gone to see his regular physician about 10 days prior to current presentation for his chronic bilateral lower extremity edema and he was started on Lasix on a daily basis. Before that, the patient had been on hydrochlorothiazide, lisinopril for essential hypertension and meloxicam for arthritic pain. After use of Lasix, about 24 to 48 hours prior to presentation, the patient had started feeling weak and he had generalized feelings of tiredness. He also felt a little dizzy on physical exertion, so he decided to come to the emergency room. In the emergency room, he was found to have a temperature of 97.4 degrees, pulse of 73, blood pressure of 92/65, and had an increase in creatinine to 2.3 from the baseline creatinine of around 1.5, so hospitalist team was consulted for further management. It was thought the patient's acute kidney injury was contributing to his dizziness and weakness, and it was thought to be related to use of multiple medications including meloxicam and newly started Lasix, which were held. He was given intravenous fluids, following which his kidney function improved the next day so it was deemed appropriate to discharge him. Ultrasound of the lower extremities was ordered for his chronic bilateral lower extremity edema, right more than left, and his recent history of right knee arthroplasty to rule out DVT, the prelim result suggested no DVT. Less than 30 minutes of time were spent in discharging this patient. Plan of care extensively discussed with the patient and his son at bedside. They were allowed to ask questions regarding his acute kidney injury and medications. All of their questions were answered satisfactorily. cc: Jesse Ng MD MTDD
--- NOTE | 2019-06-12 12:51 | Diag Imaging Result Doc PS360 ---
US RENAL 2 (RETROPER) COMPLETE - 06/12/2019 INDICATION: rigoberto TECHNIQUE: COMPARISON: None FINDINGS: There are small bilateral renal cysts. This measures about 1 cm on the right and up to 3.3 cm on the left. No hydronephrosis or mass. No shadowing renal stones. Normal renal sizes. The right kidney measures 12.1 x 5.2 x 5.3 cm. The left kidney measures 12.8 x 6.2 x 5.4 cm. The urinary bladder appears normal. IMPRESSION: Simple bilateral renal cysts. No acute disease. Electronically signed by Danilo Ingram 06/12/2019 12:49 PM
[2019-06-12] MEDS ORDERED: DESYREL PO SCH (21:00)
--- NOTE | 2019-06-13 07:02 | Extremity Venous Study ---
PROCEDURE NAME: Venous U/S Bilateral Legs - 06/11/2019 REQUESTING PHYSICIAN: Dr. Ng. SAP SECURITY ARCHITECT: Alessandro. INDICATIONS: 1. Lower extremity swelling. 2. Rule out DVT. EQUIPMENT: [employer] Vivid E9 ultrasound system with a 9 L-D transducer. FINDINGS: Images of bilateral lower extremity venous systems were obtained in both sagittal and transverse planes. Doppler was used to evaluate veins for spontaneity, phasicity, respiratory excursion, and digital augmentation. RESULTS: Normal venous compression and normal venous flow. No obvious superficial or deep venous thrombosis noted. There is some mild reflux noted bilaterally. INTERPRETATION: Mild reflux noted bilaterally. If clinical suspicion holds the patient may benefit from a dedicated reflux study. No obvious superficial or deep venous thrombosis noted. cc: MD Jesse Serrato MD
--- NOTE | 2019-06-17 15:42 | ECHO REPORT ---
ORDER DATE: 06/12/2019 MEASUREMENTS: Septal thickness 0.9, left ventricular internal diameter in diastole 5.6, posterior wall thickness 0.9, aortic root 3.2, left atrium 4.3. SUMMARY: 1. Technically difficult study due to limited acoustic window quality. 2. Aortic valve is trileaflet and opens normally on 2-dimensional images. Peak gradient across aortic valve is 14 mmHg. Mitral and tricuspid valves are without evidence of structural abnormality while pulmonic valve is not well imaged. There is mild mitral regurgitation and mild tricuspid regurgitation. The estimated systolic PA pressure by Doppler is approximately 60 mmHg. There is mild mitral regurgitation and mild tricuspid regurgitation. Estimated right ventricular systolic pressure by Doppler is 60 mmHg. There is elevated velocities across pulmonic valve and proximal pulmonary artery suggesting a gradient of approximately 50 mm across pulmonary valve and proximal pulmonary artery. The pulmonic valve is not well imaged but appears to open adequately. 3. Normal left ventricular dimensions demonstrated. Estimated left ejection fraction appears to be at least 70%. No regional wall motion abnormalities are evident. Left atrium is mildly enlarged. Right atrium and right ventricle normal in size with grossly preserved right ventricular systolic function. 4. No pericardial effusion. 5. Appearance of inferior vena cava suggests normal central venous pressure. CONCLUSIONS: 1. Technically difficult study. 2. Mild mitral regurgitation. 3. Mild tricuspid regurgitation with estimated systolic RV pressure of 60 mmHg. 4. Elevated blood flow velocities by Doppler across pulmonic valve in proximal pulmonary artery of unclear clinical significance. Clinical correlation recommended and consideration to alternative imaging strategies. 5. Normal left ventricular systolic function without regional wall motion abnormality evident. 6. Mild left atrial enlargement. cc: MD Shirlene Guzman CRNP
== END 2019-06-12 14:51 | disposition home or self-care (01) | DRG 641 ==
LOC: ED 15:30 → EDIPHOLD 19:41 → 1N 20:41
PROVIDERS: ATTEND Internal Medicine

== ENCOUNTER 2019-08-31 12:38 | Inpatient (IN) ==
--- NOTE | 2019-08-31 13:32 | Diag Imaging Result Doc PS360 ---
EXAM: CHEST-1 VIEW - 08/31/2019 HISTORY: dyspnea, weakness TECHNIQUE: One view chest COMPARISON: 06/11/2019 FINDINGS: Heart size is normal. There is mild basilar interstitial scarring similar to prior. The lungs appear to be clear of acute changes. There is no pleural effusion or pneumothorax identified. IMPRESSION: Mild basilar interstitial scarring. No acute changes. Electronically signed by Bennett Lopez 08/31/2019 1:30 PM
[2019-08-31 13:34] LABS: BASO# 0.07 X1000 (0.0-0.2); BASO% 0.6 % (0.0-0.8); EOS# 0.01 X1000 (0.0-0.7); EOS% 0.1 % (0.0-10.0); HEMATOCRIT 38.1 % (42.0-52.0); HEMOGLOBIN 11.9 g/dL (14.0-18.0); IMM GRAN# 0.03 X1000 (0.0-0.04); IMM GRAN% 0.2 % (0.0-0.5); LYMPH# 1.52 X1000 (1.2-3.4); MCHC 31.2 g/dL (33-37); MONO# 1.12 X1000 (0.11-0.59); MONO% 8.8 % (1.7-9.3); MPV 12.1 FL (7.4-10.4); NEUT# 9.95 X1000 (1.4-6.5); NEUT% 78.3 % (42.2-75.2); PLT 231 X1000 (130-400); RBC 4.95 XMIL (4.7-6.1); RDW 16.6 % (11.5-14.5)
[2019-08-31 14:23] LABS: ALB/GLOB RATIO 1.2; CALCIUM 9.7 mg/dL (8.8-10.2); CREATININE 1.9 mg/dL (0.7-1.2); MAGNESIUM 1.6 mg/dL (1.5-2.7); TOTAL BILIRUBIN 0.59 mg/dL (0.20-1.00); TOTAL PROTEIN 7.3 g/dL (6.3-8.3)
[2019-08-31 14:44] LABS: SED RATE 25 mm/hr (0-15)
[2019-08-31 15:26] LABS: URINE SOURCE CLEAN CATCH
[2019-08-31 15:31] LABS: BILIRUBIN URINE SMALL (NEGATIVE); BLOOD URINE NEGATIVE (NEGATIVE); COLOR YELLOW; GLUCOSE URINE NEGATIVE (NEGATIVE); KETONE URINE TRACE mg/dL (NEGATIVE); LEUKOCYTES URINE NEGATIVE (NEGATIVE); NITRITE URINE NEGATIVE (NEGATIVE); PROTEIN URINE 50 mg/dL (NEGATIVE); SP GRAVITY URINE 1.024; TURBIDITY URINE HAZY (CLEAR); UROBILINOGEN URINE 3 mg/dL (NORMAL)
[2019-08-31 15:40] LABS: INR 1.14; PROTIME 14.8 Seconds (11.0-16.0)
[2019-08-31 15:41] LABS: PTT 29.2 Seconds (22.3-41.8)
[2019-08-31 15:42] LABS: UR EPITHELIAL CELLS <10 /HPF (<10); URINE BACTERIA NEGATIVE /HPF; URINE RBC <10 /HPF (<10); URINE WBC <10 /HPF (<10)
--- NOTE | 2019-08-31 15:53 | EKG Report ---
Test Performed on : 08/31/2019 1:53:39 PM Test Reason : WEAKNESS Blood Pressure : / mmHG Vent. Rate : 081 BPM Atrial Rate : 081 BPM P-R Int : 000 ms QRS Dur : 076 ms QT Int : 412 ms P-R-T Axes : 000 016 043 degrees QTc Int : 478 ms Accelerated Junctional rhythm. Abnormal ECG When compared with ECG of 11-JUN-2019 15:44, Junctional rhythm. has replaced Sinus rhythm. Unconfirmed Result
[2019-08-31] MEDS ORDERED: ROCEPHIN 1 GM in NS 50 ML IV ONE (16:01)
--- NOTE | 2019-08-31 16:41 | PROVIDER DOCUMENTATION ---
This chart was entered by Patsy Chen Scribe, acting as scribe for Fady Curtis MD. HPI-General Adult - General Chief Complaint: Weakness Stated Complaint: pauline leg weakness x2 weeks Time Seen by Provider: 08/31/19 12:41 Source: patient, EMS ([facility]) Allergies/Adverse Reactions: Patient Allergies Allergy/AdvReac Type Severity Reaction Status Date / Time No Known Allergies Allergy Verified 08/31/19 13:58 Home Medications: Home Medication List Medication Instructions Recorded Confirmed Last Taken Type Amlodipine Besylate 5 mg PO DAILY 05/11/17 08/31/19 03/10/19 03:00 History Omeprazole 40 mg PO DAILY 05/11/17 08/31/19 06/10/19 History Simvastatin 40 mg PO HS 05/11/17 08/31/19 06/10/19 History Tamsulosin HCl 0.4 mg PO DAILY 05/11/17 08/31/19 06/10/19 History Metoprolol [Lopressor] 100 mg PO DAILY 07/06/17 08/31/19 06/10/19 History Metformin HCl 500 mg PO BID 03/06/19 08/31/19 06/10/19 History Trazodone [Desyrel] 50 mg PO QHS 03/06/19 08/31/19 06/10/19 History - History of Present Illness -Gen Adult Nature of Presenting Problems: 68 yowm presents to the ed via ems ([facility]) with multiple complaints. pt has BLE weakness and unable to ambulate, bilateral hand pain and left shoulder pain. pt has hx of chronic pain and 2 weeks prior was taken off his mobic due to kidney issues. pt sts pain has been slowly worsening since his pmd removed his medication. he reports he is now unable to do his ADL secondary to pain. Location of Pain/Injury: reports: upper extremity (left shoulder), hand(s) (bilateral), lower extremity (bilateral) Severity: reports: moderate Onset/Duration: reports: other (2 weeks but worsening in last 2 days) Timing: reports: still present, getting worse Context/Activities at Onset: reports: light activity Modifying Factors: worse with: movement, other (removing mobic by pmd and movement) Associated Symptoms: reports: joint pain, weakness (BLE), trouble walking. denies: back/neck pain, chest pain, cough, fever/chills, genitourinary problems, nausea, rash, shortness of breath, vomiting Similar Symptoms Previously?: Yes (hx of chronic pain) Recently seen or treated by another doctor?: Yes (pmd 2 weeks prior) Review of Systems - Adult - REVIEW OF SYSTEMS - ADULT Constitutional: denies: chills, fever Eyes: reports: no symptoms reported Ears, Nose, Mouth & Throat: reports: no symptoms reported Cardiovascular: denies: chest pain, palpitations Respiratory: denies: cough, shortness of breath, wheezing Gastrointestinal: denies: diarrhea, nausea, vomiting Genitourinary: reports: no symptoms reported Musculoskeletal: reports: see HPI, joint pain, other (bilateral hands and BLE weakness and pain). denies: back pain Integumentary: reports: no symptoms reported Neurological: denies: dizziness/vertigo, headache/migraines Psychiatric: reports: no symptoms reported Endocrine: reports: no symptoms reported Hematologic/Lymphatic: reports: no symptoms reported Allergic/Immunologic: reports: no symptoms reported All Other Systems: Reviewed and Negative Past History - Adult - PAST MEDICAL HISTORY-ADULT Review of Records: reports: Old Records Reviewed, Nursing Assessment Review, Medications Reviewed, Social history reviewed & non-contributory. Major Childhood Illnesses: reports: denies history Cardiovascular: reports: HTN, hyperlipidemia Respiratory: reports: denies history Gastrointestinal: reports: denies history Genitourinary: reports: denies history Musculoskeletal: reports: arthritis, chronic pain Neurological: reports: denies history Psychiatric: reports: denies history Endocrine/Immune: reports: Diabetes Other Conditions: reports: denies history - PRIOR SURGERIES/PROCEDURES Surgical/Procedure History: reports: orthopedic (extremity), joint replacement (rt knee) - IMMUNIZATION STATUS Childhood Immunizations: See Nurse Assessment Flu Vaccine: See Nurse Assessment - FAMILY HISTORY Family History: reviewed, not pertinent - SOCIAL HISTORY Smoking: quit greater than 1 year Substance Use: denies Living Situation: family Physical Exam-General - PHYSICAL EXAM-ADULT Initial Vital Signs Reviewed: Yes - CONSTITUTIONAL General Appearance: alert, no apparent distress, obese - EYES Eyes: PERRL/EOMI, pink conjunctivae - HEAD, EARS, NOSE, MOUTH & THROAT HENMT: moist mucous membranes - NECK Neck: non-tender, full range of motion, supple, normal inspection - RESPIRATORY Respiratory: chest non-tender, lungs clear, normal breath sounds - CARDIOVASCULAR Cardiovascular: normal peripheral pulses, regular rate, rhythm - CHEST (BREASTS) Chest/Breast: deferred - GASTROINTESTINAL (ABDOMEN) Abdominal Exam: normal bowel sounds, non tender, soft - GENITOURINARY Male Genitalia: deferred Rectal Exam: deferred Hemoccult Exam: deferred - LYMPHATIC Lymphatic: no adenopathy - MUSCULOSKELETAL Back Exam: no CVA tenderness, no vertebral tenderness Extremity: pelvis stable, pulse deficit, swelling (BLE), other (pt has well healed scar noted to rt knee and has decreased rom secondary to pain). negative: normal gait Peripheral Pulses: dorsalis-pedis (R): 1+, dorsalis-pedis (L): 3+ - SKIN Integumentary: normal color, normal turgor, warm/dry - NEUROLOGIC Neurologic: grossly normal - PSYCHIATRIC Psych/Mental Status: normal mood/affect, normal thought content, normal thought process, oriented x 3 Progress - PLAN OF CARE/RESULTS Progress/Plan/Lab Results: Vital Signs - 8 hr 08/31/19 12:40 Temperature 98 F Pulse Rate 84 Respiratory Rate 22 Blood Pressure 109/74 O2 Sat by Pulse Oximetry 100 Orders Category Date Time Status NEWS Score 2-4:Order NEWS Lactate Series NOW Care 08/31/19 12:46 Active Result Diagrams: 08/31/19 13:15 08/31/19 13:15 - REASSESSMENT Reassessment #1 Time Reassessed: 15:01 Status: improving (pt is resting in bed) - EKG 1 Time of EKG reading by physician:: 13:53 EKG Read and Signed by:: Fady Curtis EKG Interpretation (*Must complete 3 of following elements*): Normal Rate: 81 Rhythm: nsr [place]: normal QRS: normal AK Interval: normal ST Wave: normal - XRAY 1 XRAY: Bilateral XRAY Study: Chest Impression: See EMR Report (FINDINGS: Heart size is normal. There is mild basilar interstitial scarring similar to prior. The lungs appear to be clear of acute changes. There is no pleural effusion or pneumothorax identified. IMPR ESSION: Mild basilar interstitial scarring. No acute changes. Electronically signed by Bennett Lopez 08/31/2019 1:30 PM 08/31/19 [id number]) - CONSULTS/PCP/HOSPITALIST Notification #1 *Consult/PCP/Hospitalist*: hospitalist Time Discussed: 15:01 (spoke with yanick) Consult Disposition: Will see in ED, Admit Departure - Departure Date of Disposition Decision: 08/31/19 Time of Disposition Decision: 15:10 DIAGNOSIS: MARI (acute kidney injury) Disposition: ADMITTED INPATIENT 09 Certified Medical Emergency: Emergent Condition: Stable Referrals and Follow-Ups: Aurelia Alicia MD [Primary Care Provider] - - Critical Care Note This patient required my direct & personal management of CC.: No Attestation - Physician/ JANES Attestation Patient care was provided by Advanced Practice Provider:: No The physician spent face to face time with patient:: Yes Advanced Practice Provider documentation review:: Supervising physician onsite and consulted in the evaluation and care of this patient. The physician did have a face to face encounter with the patient. This chart was documented by the indicated scribe, (Patsy Chen Scribe) and accurately reflects the services I performed and decisions made by me, Fady Curtis MD, as attested by the provider's signature.
--- NOTE | 2019-08-31 17:04 | Diag Imaging Result Doc PS360 ---
EXAM: CT HEAD W/O CONTRAST - 08/31/2019 HISTORY: headache, LE weakness TECHNIQUE: CT head without contrast COMPARISON: 05/26/2018 FINDINGS: There are mild atrophic changes similar to prior. There is no evidence of infarct, although acute infarcts may not be immediately visible. There is no evidence of intracranial hemorrhage, mass effect, midline shift, or hydrocephalus. There is no evidence of skull fracture. Visualized portions of paranasal sinuses and mastoid air cells appear clear. IMPRESSION: No visible acute intracranial abnormality. No hemorrhage or mass effect. This exam was performed using automated exposure control, adjustment of mA or kV according to patient size, and/or use of iterative reconstruction technique. Electronically signed by Bennett Lopez 08/31/2019 5:01 PM
[2019-08-31 17:32] LABS: UR PROT RANDOM 66.6 mg/dL
[2019-08-31 17:37] LABS: UR CREAT RANDOM 374.9 mg/dL (14-26)
--- NOTE | 2019-08-31 17:50 | HISTORY AND PHYSICAL ---
CHIEF COMPLAINT: Fall, generalized weakness. HPI: This is a 68-year-old gentleman with a history of diabetes mellitus, chronic kidney disease, gastroesophageal esophageal reflux disease, total knee in April 2019. He presents to the emergency room via [facility] with multiple complaints. He states that he has had a history of chronic pain, low back pain as well as knee pain. He was placed on Mobic, Lasix, hydrochlorothiazide and lisinopril. After surgery he ended up being hospitalized with acute kidney injury. Medications were held. He was hydrated and he did return back to his baseline. He states that not taking the Mobic throughout these months he has had an increase in knee pain and low back pain to the point that over the last week he has had difficulty walking. Usually he pushes a seated walker but over the last week he has had to sit in the walker and need to be pushed or walk the walker throughout his house. States that last night he had difficulty standing due to pain in his low back and both knees. He had to have some assistance to get up. Today he got up, went to the bathroom and stated he could not stand up from the toilet. He thinks it was about 30 minutes he was able to rock enough to stand up and pivot to his seated wheelchair. After that he called 911. On arrival to the emergency room EMS reported to the ER staff that the patient was unable because he was too weak he was unable to hold his weight up on his legs. The patient denies any numbness to his legs or feet, any change in sensation, any loss of bowel or bladder control. He denies any fevers or chills. PAST MEDICAL HISTORY: 1. Hypertension. 2. Hyperlipidemia. 3. Diabetes mellitus. 4. Gastroesophageal reflux disease. 5. Chronic back pain. PAST SURGICAL HISTORY: Right knee replacement. SOCIAL HISTORY: He lives with his son. He denies any alcohol or illicit drug use. He did smoke for many years, although he quit about a year ago. ALLERGIES: No known drug allergies. HOME MEDICATIONS: A list will be obtained by the nursing staff. Once verified we will review and restart as appropriate. REVIEW OF SYSTEMS: Discussed the patient with pertinent positives stated in HPI. He denied any syncope or dizziness, any chest pain or palpitations, shortness of breath, cough, any fevers or chills PND orthopnea any nausea, vomiting, diarrhea, constipation, any black or bloody vomitus or stools, any hematuria, dysuria, frequency, urgency. PHYSICAL EXAMINATION: GENERAL: This is a 68-year-old gentleman who is lying on the stretcher in the emergency room in no distress. VITAL SIGNS: Blood pressure is 109/74 with a heart rate of 84, respirations are 20 to 22, temperature is 98 degrees oral with room air saturation 100%. HEENT: Pupils equal, round, react to light. EOMs are intact. Sclerae anicteric. Head is normocephalic, atraumatic. Mucous membranes are moist. NECK: Supple. Trachea midline. No JVD. CARDIOVASCULAR: Regular rate and rhythm. S1 and S2 are appreciated. No murmur. PULMONARY: Breath sounds are clear with no increased work of breathing noted. Chest rises and falls symmetric with respiration. GASTROINTESTINAL: Abdomen is soft, nontender, nondistended with bowel sounds in all 4 quadrants. : No CVA or suprapubic tenderness. BACK: No vertebral tenderness on palpation. EXTREMITIES: He has bilateral lower extremity edema that is from thighs down. Calves are nontender to palpation. He does have a healed scar to his right knee. He has decreased range of motion to his legs due to pain. He denies any change in sensation. Peripheral pulses are palpable x4 extremities. SKIN: Warm and dry. NEUROLOGIC: He is alert and oriented. LABS: WBC is 12.7 with hemoglobin 11.9, hematocrit 38.1, platelets of 231,000. INR is 1.14. Sodium 137, potassium 4, BUN 37, creatinine 1.9 with a glucose of 97. Urinalysis reveals negative nitrites with small bilirubin, less than 10 microscopic red blood cells, white blood cells, epithelial cells, negative bacteria. Blood cultures are pending. Influenza A is positive. Influenza B is negative. CT of the head reveals no visible acute abnormality. No hemorrhage or mass effect. ASSESSMENT AND PLAN: 2. Acute kidney injury overlying chronic kidney disease. Get urine electrolytes, check a renal ultrasound, as the patient states that he has not restarted his Lasix, meloxicam or lisinopril will hold any renal toxic medications and renal dose medications as appropriate. Will give gentle hydration and trend labs daily. 3. Leukocytosis. Blood cultures are pending. He was given Rocephin in the emergency room. We will continue this at present and then further antibiotics will be culture driven. 4. Diabetes mellitus type 2. Will hold his metformin. Pattern blood glucose with sliding scale insulin. 5. Gastroesophageal reflux disease. PPI Prilosec We will check a CBC, a CMP, magnesium and phosphorus in the morning. 6. Placed on telemetry. 7. Chronic back pain. Get a lumbar spine CT. We will not consult physical therapy until we get the results of the CT scan and if appropriate we will consult Physical Therapy. 8. Discharge planning. Will consult [facility]. 9. Patient was evaluated and plan was discussed with Dr. Reyna. Further treatments pending hospital course. Dictated by SIL Mabry for Mani Worthy MD cc: SIL Mabry MD MTDD
--- NOTE | 2019-08-31 17:54 | Diag Imaging Result Doc PS360 ---
EXAM: CT LUMBAR SPINE W/O CONTRAST - 08/31/2019 HISTORY: bilateral LE weakness TECHNIQUE: CT lumbar spine without contrast COMPARISON: None. FINDINGS: There are artifacts from patient's body habitus which limit soft tissue detail. There are bilateral L5 pars interarticularis defects. There is associated grade 1 anterolisthesis at L5-S1. There is apparent mild narrowing of the spinal canal at L4-5 by posterior disc bulge in combination with facet and ligamentum flavum hypertrophy. There is no fracture identified. There is no destructive or sclerotic lesion identified. IMPRESSION: Bilateral L5 pars interarticularis defects, with associated grade 1 L5-S1 spondylolisthesis. Mild narrowing of the spinal canal at L4-5 by posterior disc bulge and posterior element hypertrophy. This exam was performed using automated exposure control, adjustment of mA or kV according to patient size, and/or use of iterative reconstruction technique. Electronically signed by Bennett Lopez 08/31/2019 5:51 PM
--- NOTE | 2019-08-31 19:03 | Diag Imaging Result Doc PS360 ---
EXAM: US RENAL 2 (RETROPER) COMPLETE - 08/31/2019 HISTORY: decreased renal function TECHNIQUE: Bilateral renal ultrasound COMPARISON: 06/12/2019 FINDINGS: The right kidney measures 12.2 x 6.1 x 5.6 cm in size, and has cortical thickness of approximately 1 cm. The left kidney measures 14 x 6.5 x 5.1 cm in size, and has cortical thickness of approximately 1 cm. There is a 1.7 cm right renal cyst. There is a 3.2 cm left renal cyst. There is no solid renal mass, renal stone, or hydronephrosis identified. Images of the urinary bladder demonstrate no lesion. IMPRESSION: Bilateral cysts. No other visible renal abnormality. Electronically signed by Bennett Lopez 08/31/2019 7:00 PM
[2019-08-31] MEDS: NS 1,000 ML IV SCH (19:58)
[2019-08-31] MEDS ORDERED: TAMIFLU PO SCH (21:00)
[2019-09-01] MEDS: PRILOSEC PO SCH (06:17)
[2019-09-01 07:40] LABS: BASO# 0.03 X1000 (0.0-0.2); BASO% 0.4 % (0.0-0.8); EOS# 0.02 X1000 (0.0-0.7); EOS% 0.2 % (0.0-10.0); HEMATOCRIT 34.2 % (42.0-52.0); HEMOGLOBIN 10.5 g/dL (14.0-18.0); IMM GRAN# 0.02 X1000 (0.0-0.04); IMM GRAN% 0.2 % (0.0-0.5); LYMPH# 1.66 X1000 (1.2-3.4); LYMPH% 19.6 % (20.5-51.1); MCH 23.7 PG (27-31); MCHC 30.7 g/dL (33-37); MCV 77.2 FL (81-99); MONO# 0.75 X1000 (0.11-0.59); MONO% 8.9 % (1.7-9.3); NEUT# 5.99 X1000 (1.4-6.5); NEUT% 70.7 % (42.2-75.2); PLT 189 X1000 (130-400); RBC 4.43 XMIL (4.7-6.1); RDW 16.3 % (11.5-14.5); WBC 8.47 X1000 (4.8-10.8)
[2019-09-01 07:53] LABS: ALBUMIN 3.3 g/dL (3.5-5.0); CREATININE 1.4 mg/dL (0.7-1.2); MAGNESIUM 1.6 mg/dL (1.5-2.7); POTASSIUM 3.5 mmol/L (3.5-5.1); TOTAL BILIRUBIN 0.59 mg/dL (0.20-1.00); TOTAL PROTEIN 6.7 g/dL (6.3-8.3)
[2019-09-01] MEDS: NS 1,000 ML IV SCH ×2 (09:14→20:08)
[2019-09-01] MEDS: OFIRMEV 1000 MG/ISOTONIC SOLN 1,000 MG/100 ML BOTTLE IV SCH ×2 (12:21→18:19)
[2019-09-01] MEDS: MORPHINE IV PRN (12:22)
--- NOTE | 2019-09-01 13:40 | PROGRESS NOTE ---
DATE: 09/01/2019 SUBJECTIVE: The patient reports today severe pain in the lumbar area. He is not quite sure if this pain is causing that he is not able to move both legs. Denies any other complaints. OBJECTIVE: Vital Signs: Temperature 98.2 degrees, heart rate 77, respiratory rate 16, blood pressure 148/83, O2 saturation 98% on room air. General Examination: This is a 68-year-old male, lying in bed in no acute distress. Cardiovascular exam: S1, S2 heard. No murmurs, gallops, or rubs. Regular rate and rhythm. Respiratory exam: Clear bilaterally to auscultation. No work of breathing or using accessory muscles. Abdomen: Soft, nontender to palpation. Bowel sounds present. No organomegaly. Extremities: Patient has bilateral lower extremities. They are present from thighs all the way down to both legs. The patient has decreased range of motion to both legs due to pain. Sensation is okay. Peripheral pulses are present in both legs. Neurological exam: Patient is alert and oriented x3. Moves 4 extremities, but both lower extremities he moved slowly because of the pain, but he reports that he feels that he is able to move them. LABORATORY DATA: White cell count 8.47, hemoglobin 10.5, with renal function that is 1.4. ASSESSMENT AND PLAN: 1. Acute kidney injury. Patient had this problem before because of nephrotoxic agents. He was taking nonsteroidal anti-inflammatory drugs and also LEIGHA inhibitors. At this point, he is doing much better. Renal function is getting better with intravenous fluids. We will continue with the same management. We will keep checking renal function daily. As we mentioned before, we are not going to start any Lasix. He is not going to take any meloxicam for chronic back pain or lisinopril. 2. Leukocytosis .patient received 1 dose of ceftriaxone in the emergency room, but we do not have any source of infection to treat. So, at this point, we are not going to provide any antibiotics. We will wait for results of cultures. 3. Chronic back pain. Patient reports not only back pain, but also weakness. The computed tomography of the lumbar spine that we did showed there is mild narrowing in the spinal canal, some grade L5-S1 spondylolisthesis. So, at this point, we will start pain medications and physical therapy. 4. Disposition: We will continue to monitor this patient closely. cc: Mani Worthy MD
--- NOTE | 2019-09-01 14:52 | NEUROLOGY CONSULTATION ---
DATE: 09/01/2019 LOCATION: Room 314. HISTORY OF PRESENT ILLNESS: Mr. Moy is 68 years old, and he reports becoming unable to walk gradually over the last week due to pain in his legs. He reports chronic pain in his back, without radicular features. He has had chronic knee pain. Right knee was worse than the left until he had right knee replacement several months ago. He did very well from a surgical standpoint. He was walking without a walker a week or so ago. Over the last week, he noticed gradually increasing pain, mostly in the left knee, but sometimes involving the left leg from the knee to the foot. The pain was intense when he would try to bear weight. Pain was not prominent when he was not bearing weight. He began using his seated walker for mobility, and then yesterday reports a sense of weakness in the legs with pain so intense that he could not stand. He has wet his pants a few times, but that was due to not getting to the bathroom on time. He has not had bowel or bladder incontinence. Back pain has not been any worse than baseline in recent weeks. He has chronic numbness in the feet, attributed to diabetic neuropathy with some dysesthesia, but that has not been significantly different than baseline in recent weeks. Past history is remarkable for diabetes mellitus, chronic kidney disease, GERD, hypertension, dyslipidemia. His recent home medicine list does not include narcotics. He had tramadol and oxycodone several months ago, around the time of his right knee replacement, and he reports he has not used either of those recently. We do not have urine drug screen this admission. Lab has been otherwise unremarkable. He had lumbosacral CT scan showing diffuse degenerative changes. Noncontrast CT of the head is unremarkable. Computer record shows venous ultrasound on the legs negative for DVT on 06/11/2019. He has been afebrile. Systolic blood pressures were 100 to 110s initially, 130s to 170s in recent hours. On exam, Mr. Moy is awake, alert, attentive. He is oriented. He appears intact mentally on brief bedside assessment. Neck is supple. Straight leg raising is negative bilaterally, producing no back pain or radicular pain. Any passive or active movement around the left knee is very uncomfortable, by his report. Left knee is warm. Feet are warm. He reports diminished pinprick appreciation in a stocking pattern bilaterally, dense over the feet, with some variability at the midshin level, and return of normal sensation above the knee bilaterally. Proprioception is good at the great toe MTP joint bilaterally. He has good power in all groups in the right leg. On the left, he reports pain limiting all active movement. He does demonstrate good power in the left hip flexion, left hip abduction and adduction, left foot dorsiflexion and plantar flexion. He is able to demonstrate at least 4/5 power in the left quadriceps, and 3/5 in the left hamstring, limited by pain. Reflexes are absent at the ankles and at the knees. Plantar response is silent bilaterally. Power is good in the arms. IMPRESSION: Left lower leg pain, most prominent at the knee. I believe he is limited by pain. I do not find definite neurologic deficit to account for his difficulty with standing and walking. There is clinical evidence of peripheral neuropathy, presumed diabetic neuropathy, but I do not think that explains his recent difficulty. He has chronic back pain and could have a chronic radiculopathy, but recent features are not radicular, and I do not think he is limited at this time by radiculopathy or by myelopathy. I do not have any urgent suggestion from Neurology standpoint. He reports he already had plans for further orthopedic management of the left knee before recent deterioration. Thank you for asking Neurology to see Mr. Moy. cc: MD CHIQUITA Crespo III
[2019-09-01] MEDS ORDERED: ROCEPHIN 1 GM in NS 50 ML IV SCH (16:00)
[2019-09-02] MEDS: OFIRMEV 1000 MG/ISOTONIC SOLN 1,000 MG/100 ML BOTTLE IV SCH ×4 (00:29→17:15)
[2019-09-02] MEDS: PRILOSEC PO SCH (06:17)
[2019-09-02 07:46] LABS: BASO# 0.02 X1000 (0.0-0.2); BASO% 0.2 % (0.0-0.8); EOS# 0.01 X1000 (0.0-0.7); EOS% 0.1 % (0.0-10.0); HEMATOCRIT 32.1 % (42.0-52.0); HEMOGLOBIN 9.9 g/dL (14.0-18.0); LYMPH# 1.16 X1000 (1.2-3.4); LYMPH% 14.4 % (20.5-51.1); MCH 23.7 PG (27-31); MCHC 30.8 g/dL (33-37); MCV 76.8 FL (81-99); MONO# 0.65 X1000 (0.11-0.59); NEUT# 6.24 X1000 (1.4-6.5); NEUT% 77.3 % (42.2-75.2); PLT 184 X1000 (130-400); RBC 4.18 XMIL (4.7-6.1); RDW 16.2 % (11.5-14.5); WBC 8.08 X1000 (4.8-10.8)
[2019-09-02 08:05] LABS: AGAP 14; ALBUMIN 3.3 g/dL (3.5-5.0); BUN 21 mg/dL (8-22); CALCIUM 8.8 mg/dL (8.8-10.2); CHLORIDE 97 mmol/L (98-107); COSMO 273; CREATININE 1.1 mg/dL (0.7-1.2); ESTIMATED GFR > 60; GLUCOSE 123 mg/dL (70-104); POTASSIUM 3.3 mmol/L (3.5-5.1); SODIUM 134 mmol/L (136-145); TCO2 23 mmol/L (25-35)
[2019-09-02] MEDS: NS 1,000 ML IV SCH (09:24)
--- NOTE | 2019-09-02 12:30 | PROGRESS NOTE ---
DATE: 09/02/2019 SUBJECTIVE: Patient reports feeling better with his oral pain medications in this case, it is Tylenol and morphine. Denies any fever or chills. OBJECTIVE: Vital Signs: Temperature 99.3 degrees, heart rate 96, respiratory 19, blood pressure 142/69, O2 saturation 98% on room air. General: This is a 68-year-old male, lying in bed, in no acute distress. Cardiovascular: S1 and S2 heard. No murmurs, gallops, or rubs. Regular rate and rhythm. Respiratory: Clear bilaterally to auscultation. No work of breathing or using accessory muscles. Abdomen: Soft, nontender to palpation. Bowel sounds present. No organomegaly. Extremities: Patient has bilateral lower extremity weakness with decreased range of motion from both legs due to pain. Sensation is okay. Peripheral pulses present in both legs. LABORATORY DATA: Reviewed. ASSESSMENT AND PLAN: 1. Acute kidney injury. Resolved. We will avoid all nephrotoxic drugs including LEIGHA inhibitors and nonsteroidal anti-inflammatory drugs. 2. Bilateral lower extremity weakness. The patient has been evaluated by Neurology. No urgent suggestions noted. The CT revealed some spinal stenosis. Just to have a better visualization of the anatomy, we are going to order an MRI of the lumbar spine with contrast to see what it shows. 3. Disposition. Continue to monitor this patient closely. cc: Mani Worthy MD
--- NOTE | 2019-09-02 12:45 | Diag Imaging Result Doc PS360 ---
EXAM: MRI LUMBAR SPINE W/WO CONTRAST INDICATION: bilateral LE weakness TECHNIQUE: COMPARISON: None. FINDINGS: Incidentally, there are a few small hemangiomas in the lower thoracic and lumbar spine, largest in the L4 vertebral body. The osseous marrow signal is unremarkable, otherwise. The conus medullaris appears normal. Surrounding soft tissues are essentially unremarkable except for a partially imaged left renal cyst. Segmental analysis of the lumbar spine is detailed below. L1-2: Unremarkable. L2-3: Unremarkable. L3-4: Unremarkable. L4-5: There is mild degenerative facet arthropathy at this level and there is a small synovial cyst posteriorly just to the right of midline that probably arises from the right facet joint or from a pseudoarticulation between the spinous processes. It is causing slight effacement of the posterior aspect of the thecal sac but no high-grade central stenosis is appreciated. The neuroforamina appear to be patent. L5-S1: There are bilateral chronic pars defects at L5. There is associated grade 1 anterolisthesis of L5 on S1. There is right facet arthropathy. The central canal is patent. There is mild foraminal narrowing bilaterally. IMPRESSION: 1.Chronic pars defects at L5 with mild anterolisthesis. 2.Facet arthropathy at L4-5 and L5-S1 including a small synovial cyst at L4-5 posteriorly but no high-grade stenosis is appreciated. Electronically signed by Dru Avery 09/02/2019 12:43 PM
[2019-09-02] MEDS: MORPHINE IV PRN (21:49)
[2019-09-03] MEDS: NS 1,000 ML IV SCH ×2 (00:12→15:32)
[2019-09-03] MEDS: OFIRMEV 1000 MG/ISOTONIC SOLN 1,000 MG/100 ML BOTTLE IV SCH ×3 (00:12→14:03)
[2019-09-03] MEDS: PRILOSEC PO SCH (06:36)
--- NOTE | 2019-09-03 11:28 | Diag Imaging Result Doc PS360 ---
EXAM: KNEE 3 VIEWS LEFT 09/03/2019 HISTORY: osteoarthritis TECHNIQUE: Left knee three views COMMENT: There is osteoarthritis present with osteophyte formation particularly laterally. There is an effusion and marked patellofemoral osteophyte formation. IMPRESSION: Osteoarthritis with effusion. Electronically signed by Adolfo Welch 09/03/2019 11:26 AM
--- NOTE | 2019-09-03 11:29 | Diag Imaging Result Doc PS360 ---
EXAM: SHOULDER 1 VIEW LEFT 09/03/2019 HISTORY: pain TECHNIQUE: Left shoulder one view COMMENT: There is severe acromioclavicular arthropathy. There is no evidence of acute fracture or dislocation. IMPRESSION: Osteoarthritis. Electronically signed by Adolfo Welch 09/03/2019 11:27 AM
--- NOTE | 2019-09-03 11:38 | PROGRESS NOTE ---
DATE: 09/03/2019 SUBJECTIVE: The patient reports feeling fine, working with Physical Therapy. No other complaints noted. OBJECTIVE: Vital Signs: Temperature 98.5 degrees, heart rate 85, respiratory rate 17, blood pressure 158/92, O2 saturation 95% on room air. General: This is a 68-year-old, male, lying in bed in no acute distress. Cardiovascular: S1, S2 heard. No murmurs, gallops, or rubs. Regular rate and rhythm. Respiratory: Clear bilaterally to auscultation. No work of breathing or using accessory muscles. Abdomen: Soft, nontender to palpation. Bowel sounds present. No organomegaly. Extremities: No clubbing, cyanosis, or edema. Peripheral pulses present in both legs. Neurological: The patient has bilateral motor strength 4/5 in both lower extremities. Neurologic: Alert and oriented x3. LABORATORY DATA: Reviewed. IMAGING: MRI of the lumbar spine showed chronic pars defect at L5, with mild anterolisthesis and facet arthropathy at L4-L5 and L5-S1, including a small synovial cyst at L4-L5 posteriorly, but no high-grade stenosis appreciated. ASSESSMENT AND PLAN: 1. Acute kidney injury. Completely resolved. 2. Bilateral lower extremity weakness. That is the reason basically why this patient was admitted to the hospital. The patient has been evaluated by Neurology. No new recommendations are provided. MRI of lumbar spine noted. At this point, my recommendation for this patient was to go to rehab facility. He said that he is not sure and he is going to talk with the rest of his family and will give us an answer tomorrow. Will continue with physical therapy here. 3. Generalized osteoarthritis. The patient is complaining of left knee pain and also left shoulder pain. The patient requested Orthopedic consultation, so will do some x-rays, and will call Dr. Haque, who is on-call today, and will go from there. cc: Mani Worthy MD
--- NOTE | 2019-09-03 12:19 | ORTHOPAEDICS CONSULTATION ---
DATE: 09/03/2019 CHIEF COMPLAINT: Left knee pain and left shoulder pain. HISTORY OF PRESENT ILLNESS: Mr. Moy is a 68-year-old male who presented to the ER 3 days ago after becoming too weak to hold himself up. He states that his left knee has been bothering him and his bilateral legs have been weak. He was admitted to the hospital and found to have acute kidney injury with overlying chronic kidney disease. He had a right total knee in April [address] Last. He states over the last 2 weeks that he has been unable to elevate his left arm and has had significant weakness in his left arm. He denies any injury to that left arm from a fall. Orthopedics has been consulted for left knee pain and left shoulder pain. He has already been evaluated by Neurology for his chronic low back pain and bilateral leg weakness. PAST MEDICAL HISTORY: 1. Hypertension. 2. Hyperlipidemia. 3. Diabetes. 4. GERD. 5. Chronic back pain. 6. Osteoarthritis. PAST SURGICAL HISTORY: A right knee replacement per Dr. Last in 2018. SOCIAL HISTORY: He currently resides with his son. He denied any alcohol or illicit drug use. He is a former smoker. ALLERGIES: No known drug allergies. HOME MEDICATIONS: Have not been reconciled yet that I can see. REVIEW OF SYSTEMS: He denied any decreased sensation, loss of bowel or bladder control, fever or chills, vomiting, diarrhea, or chest pain. He has had some episodes of urinating on himself but states this was due to him not getting to the bathroom in time. PHYSICAL EXAMINATION: Vital Signs: Most recent vital signs are temperature of 97.8 degrees, heart rate of 93, blood pressure 158/87. General: Mr. Moy is a 68-year-old man who is sitting up in bed and eating his lunch at this time. He is in no acute distress. Extremities: Left shoulder with positive Kimball reinforcement, positive Neer impingement. He is unable to actively elevate his arm. He does have a positive drop-arm test and he is unable to hold his arm once it is passively elevated. He does not have any crepitus with range of motion. He does have some tenderness to palpation over the anterolateral acromion. The left knee shows a large effusion with no redness noted. He is unable to actively straight leg raise his left leg. He is able to do a straight leg raise with his right leg. He states he is unable to do this with his left leg due to pain. He does have active dorsiflexion and plantar flexion of his left foot. His left knee is painful with even gentle range of motion. LABORATORY DATA AND IMAGING: His white count is not elevated, it is currently 8, hemoglobin is 9 and 32. Sodium of 134, glucose of 123. A left shoulder x-ray reveals AC joint arthritis.However, no other evidence of acute fracture. Left knee x-ray reveals osteoarthritis with effusion. A lumbar spine CT revealed degenerative changes and a head CT revealed no acute intracranial abnormality. ASSESSMENT: 1. Left knee osteoarthritis with effusion. 2. Left subacromial bursitis with probable rotator cuff tear. PLAN: At this point, we would recommend aspiration of Mr. Moy's left knee and an intra-articular corticosteroid injection. We also recommend a subacromial corticosteroid injection to his left shoulder for pain control as well. The paitient is agreeable to this He does mention that he is diabetic, but his blood sugar seems to be well controlled as since being in the hospital, it has not gotten above 123. Will have Mr. Moy follow up with Dr. Last in the office after discharge. Dictated by SIL Simon for Krish Haque MD cc: Krish Haque MD MTDRex
[2019-09-03] MEDS ORDERED: MARCAINE 0.25% ONE (12:48)
[2019-09-03] MEDS ORDERED: XYLOCAINE 1% ONE (12:48)
[2019-09-03] MEDS ORDERED: DEPO-MEDROL ONE ×2 (12:48→16:42)
[2019-09-03] MEDS: TYLENOL PO SCH ×2 (15:32→20:54)
[2019-09-04] MEDS: TYLENOL PO SCH ×4 (02:56→21:20)
[2019-09-04] MEDS: PRILOSEC PO SCH (06:24)
[2019-09-04] MEDS: MORPHINE IV PRN (07:34)
[2019-09-04] MEDS: NS 1,000 ML IV SCH ×2 (07:38→21:23)
--- NOTE | 2019-09-04 07:53 | ORTHOPAEDICS PROGRESS NOTE ---
DATE: 09/04/2019 SUBJECTIVE: Mr. Patel is lying in bed this morning and we are planning on aspirating his left knee as well as injecting it with Depo-Medrol and injecting his shoulder with Depo-Medrol. Verbal consent was obtained for these procedures and he wishes to have these done at this time. We are hoping that by doing these, he will receive some pain relief and hopefully be able to ambulate better. OBJECTIVE: Mr. Moy is lying in bed this morning and is in no acute distress. He is able to move his left leg a little better than he was yesterday, though he still complains of intense pain to his left knee. He is still unable to raise his left arm at all and states it is very weak. He is able to move his left hand. His left knee is not red or warm to suggest a septic joint at this time; however, he does have a large effusion. ASSESSMENT: Left knee osteoarthritis and left subacromial bursitis with probable rotator cuff tear. PLAN: After verbal consent was obtained, Mr. Moy's left shoulder was prepped with iodine and then injected with a mixture of 6 mL of Marcaine 0.25% and 80 mg of Depo-Medrol. The area was first prepped with iodine and allowed to dry. He tolerated this procedure well. Secondly, his left knee was aspirated. The area was prepped with iodine and approximately 50 mL of blood-tinged synovial fluid was aspirated. He was then injected with a mixture of 6 mL of Marcaine 0.25% and 80 mg of Depo-Medrol. He tolerated this procedure well. He states that his knee is still cleaner tube to movement after the procedure. We sent the aspirated synovial fluid down to the lab for analysis for both Gram stain, culture and cell count, and crystals. We will await these results but it is most likely at this time that this effusion is related to his osteoarthritis. We still plan on having him follow up with Dr. Last once he is discharged home from the hospital. Dictated by SIL Simon for Krish Haque MD cc: Krish Haque MD
[2019-09-04 10:00] LABS: BODY FLUID SOURCE SYNOVIAL FLUID; MONOS 10 %; POLYS 90 %; WBC BF 58320 /cumm
--- NOTE | 2019-09-04 10:23 | PROGRESS NOTE ---
DATE: 09/04/2019 SUBJECTIVE: Mr. Moy was admitted on 08/31/2019 for fall and generalized weakness. He is followed by Dr. Alicia. A 68-year-old gentleman with history of diabetes mellitus, chronic kidney disease, gastroesophageal reflux disease, total knee was done in 04/2019. He presented to the emergency room via [facility] with multiple complaints. States that he had a history of chronic pain, lower back pain, as well as knee pain. He was placed on Mobic, Lasix, hydrochlorothiazide, and lisinopril. After surgery, he ended up being hospitalized with acute kidney injury. Medications were held. He was hydrated and he did not return back to his baseline. He states that he has not taken Mobic throughout these months, and has had increasing knee pain, low back pain to a point that over the last week, he has had difficulty walking. Usually, he pushes a seated walker, but over the last week, he has had to sit in the walker and he needed to be pushed to get through his house. States that the night before admission, he had difficulty standing due to pain in the lower back and both knees. He came to the emergency room, and CT of the head was unremarkable. He had acute kidney injury overlying chronic kidney disease, leukocytosis, diabetes mellitus, gastroesophageal reflux disease, so put on proton pump inhibitor. OBJECTIVE: General: On exam today, he says he feels better. His knee feels a little better. He is still not able to walk very well. He is awake, alert, and oriented x3. He is eating well by his report. His bowels are moving. Vital Signs: He remains afebrile, temperature 97.5 degrees, pulse 88, respirations 20, blood pressure 156/94. HEENT: Pupils are equal and round. Lungs: Clear in all lung traore. Cardiovascular: Regular rhythm and rate without murmur or S3. Urine output was 1500 mL. ASSESSMENT AND PLAN: 1. Left knee osteoarthritis, left subacromial bursitis, and possible rotator cuff tear. He received an injection of Marcaine and Depo-Medrol. His left knee was aspirated, and that was injected with Marcaine and Depo-Medrol. He tolerated the procedure well per Dr. Haque. 2. Bilateral lower extremity weakness. That is really why he is here in the hospital, very weak. He has been evaluated by Neurology. No new recommendations. MRI of the lower spine noted. Continuing to pursue rehab, and may need to go to rehab for a while. He lives in [place]. 3. Generalized osteoarthritis, left knee pain, and left shoulder pain. REVIEW OF ORDERS: He is getting methylprednisone in his injection, otherwise not on any IV medications. He is getting normal saline at 75 mL an hour, Prilosec 40 mg a day p.o. His hematocrit is 32, hemoglobin 9.9, white blood cell count 8080, platelet count 184,000, and that is stable. Sodium 134, potassium 3.3, chloride 97, BUN 21, creatinine 1.1. Blood sugars 123, 149, 155, 115, 122, and 193. Social Service is involved. We will need to check for COVID. He has no symptomatology to suggest a viral respiratory tract infection, but for acceptance into rehab, if he is a candidate, he will need COVID testing, so will do that. cc: Warner Altman MD
[2019-09-05] MEDS: TYLENOL PO SCH ×4 (02:48→21:23)
[2019-09-05] MEDS: PRILOSEC PO SCH (06:39)
--- NOTE | 2019-09-05 07:48 | ORTHOPAEDICS PROGRESS NOTE ---
DATE: 09/05/2019 SUBJECTIVE: The patient is a pleasant 68-year-old male, who was experiencing significant pain and discomfort in his left knee and left shoulder. He underwent an aspiration yesterday, and did have intraarticular corticosteroid injection, as well as left subacromial corticosteroid injection. Pain is much improved. OBJECTIVE: On physical exam, patient's left knee has improved range of motion. Less tenderness to palpation. Calf is soft appears. His left shoulder has less discomfort with range of motion. However, continues with significant weakness. DIAGNOSTIC DATA: His Gram stain was negative. His cultures are pending. Did reveal negative birefringent crystals consistent with gout. IMPRESSION: 1. Gouty arthritis, left knee. 2. Left subacromial bursitis with probable rotator cuff tear. PLAN: At this point, the patient seems to have responded well to the injections. He may mobilize as tolerated from an Orthopedic standpoint. Patient will follow up with Dr. Last after discharge from the hospital. All questions were answered. He agrees to treatment plan. cc: Krish Haque MD
[2019-09-05] MEDS: NS 1,000 ML IV SCH ×3 (08:41→21:26)
--- NOTE | 2019-09-05 09:26 | PROGRESS NOTE ---
DATE: 09/05/2019 SUBJECTIVE: He feels much better this and he feels a little stronger. He remains afebrile. OBJECTIVE: Vital Signs: Temperature 97.8 degrees, pulse 80, respirations 20, blood pressure 159/81. Eyes: Pupils are equal and round. Lungs: Lungs are clear in all lung traore. Cardiovascular exam: Regular rhythm and rate without murmur or S3. : Urine output is 2000 mL. ASSESSMENT AND PLAN: 1. Gouty arthritis of the left knee. 2. Left subacromial bursitis and probable rotator cuff tear. Continue physical therapy. 3. Generalized osteoarthritis. 4. General weakness and deconditioning. REVIEW OF HIS ORDERS: He got some injections in his joints, but he is not on any other standard medications. He is getting normal saline at 75 mL an hour. We will continue physical therapy. I will probably get occupational therapy to help and try and prepare for discharge plans. I do not know if he will need to go to rehab, but he will need to be able to ambulate. cc: Warner Altman MD
[2019-09-05] MEDS: MILK OF MAGNESIA PO PRN (16:32)
[2019-09-05] MEDS: LOPRESSOR PO SCH ×2 (17:16→21:23)
[2019-09-05] MEDS ORDERED: LOPRESSOR PO SCH (21:00)
[2019-09-06] MEDS: TYLENOL PO SCH ×4 (03:54→21:10)
[2019-09-06] MEDS: PRILOSEC PO SCH (06:41)
[2019-09-06] MEDS: LOPRESSOR PO SCH ×2 (09:48→21:10)
[2019-09-06] MEDS: NS 1,000 ML IV SCH ×2 (09:54→21:10)
--- NOTE | 2019-09-06 10:44 | PROGRESS NOTE ---
DATE: 09/06/2019 Mr. Moy says he does not feel real good today. He is just mainly weak. No nausea, not really pain, but he is breathing comfortably. He does not appear in any distress. OBJECTIVE: Temperature 97.6 degrees, pulse 65, respirations 26, blood pressure 175/99. Last several blood pressures 168/94, 159/81, 181/92. Lungs are clear in all lung traore. Cardiovascular exam, regular rate without murmur or S3. Abdomen is soft. Skin is warm and dry. ASSESSMENT AND PLAN: 1. Gouty arthritis left knee, left subacromial bursitis and probable rotator cuff tear. Seems to have responded some to the injections. Overall better. Continue physical therapy. 2. Generalized osteoarthritis. 3. General weakness and deconditioning. Past medical history also includes history of gastroesophageal reflux and chronic lower back pain, obesity, so continue physical therapy. REVIEW OF HIS ORDERS: He is getting morphine p.r.n. pain q.3 hours, Prilosec 40 mg daily, normal saline at 75 mL/hour. Physical Therapy and Occupational Therapy are involved. cc: Warner Altman MD
[2019-09-07] MEDS: TYLENOL PO SCH ×4 (03:46→20:59)
[2019-09-07] MEDS: PRILOSEC PO SCH (06:21)
[2019-09-07] MEDS: LOPRESSOR PO SCH ×2 (08:32→20:59)
[2019-09-07] MEDS: NS 1,000 ML IV SCH ×3 (10:04→20:59)
[2019-09-07] MEDS ORDERED: LASIX IV ONE (12:29)
--- NOTE | 2019-09-07 13:11 | PROGRESS NOTE ---
DATE: 09/07/2019 SUBJECTIVE: Mr. Moy said he does not feel real good today. His knees hurt a little bit. His breathing seems to have a little more dyspnea this morning. OBJECTIVE: Temperature 97.9 degrees, pulse 67, respirations 24. Last several blood pressures 181/92, 175/99, 170/91, 167/84, 173/86. Pupils are equal. No distended neck veins. Lungs are clear anterolaterally. I do not hear any wheezing. Cardiovascular Examination: Regular rhythm and rate without murmur or S3. Abdomen is soft. Skin is warm and dry. No pedal edema. Blood sugars 114, 101, 136, 114. ASSESSMENT AND PLAN: 1. Gouty arthritis, left knee, left subacromial bursitis, possible rotator tear which he got some relief with the injections but they are starting to hurt again a little more. 2. Generalized arthritis. 3. Generalized weakness and deconditioning. 4. Looking back at his past medical history, he has a history of diabetes mellitus. Sugars seem to be under fairly good control. History of gastroesophageal reflux and history of chronic back pain. REVIEW OF HIS ORDERS: I am going to continue his current normal saline at 75 mL an hour. Actually, I may cut that down. I may give him 1 dose of Lasix. He sounds a little bit wet today. He is getting Prilosec 40 mg a day. REVIEW OF LABS: His hematocrit is stable at 32, hemoglobin 9.9, white blood cell count 8080, platelet count 184,000. Blood sugars, last several are 101, 146, 136, 114. Continue physical therapy. Hope to discharge soon. He has physical therapy and occupational therapy working with him. cc: Warner Altman MD
[2019-09-08] MEDS: TYLENOL PO SCH ×4 (03:40→20:30)
[2019-09-08] MEDS: PRILOSEC PO SCH (06:08)
[2019-09-08] MEDS: LOPRESSOR PO SCH ×2 (08:07→20:30)
[2019-09-08] MEDS: MILK OF MAGNESIA PO PRN (08:09)
--- NOTE | 2019-09-08 08:25 | Diag Imaging Result Doc PS360 ---
EXAM: CHEST-PORTABLE 09/08/2019 HISTORY: dyspnea TECHNIQUE: AP portable upright at 0755 COMMENT: There is ill-defined opacity in the left costophrenic angle region which was not present on 08/31/2019. The inspiration is less optimal. IMPRESSION: Lingular and/or left lower lobe pneumonia. Electronically signed by Adolfo Welch 09/08/2019 8:22 AM
--- NOTE | 2019-09-08 09:42 | PROGRESS NOTE ---
DATE: 09/08/2019 SUBJECTIVE: They had just stood him up to start trying to do some therapy, pretty weak, but he is able to support his weight leaning on his table. His legs are shaky. He says he feels better, breathing a little better today. OBJECTIVE: Vital Signs: Temperature 97.8, pulse 70, respirations 22, blood pressure 157/91. Eyes: Pupils are equal and round. Lungs: Clear in all lung traore. Cardiovascular exam: Regular rhythm and rate without murmur or S3. Abdomen: Abdomen is soft. Skin: Skin is warm and dry. : Urine output was over 8 L, almost 9 L. IMAGING STUDIES: Chest x-ray today shows lingular or left lower lobe pneumonia or infiltrate. ASSESSMENT AND PLAN: 1. Gouty arthritis, left knee, left subacromial bursitis, possible rotator cuff. Received some injections in the shoulder and in the knee. 2. Generalized arthritis. 3. Generalized weakness, deconditioning. Continue physical therapy. It appears he has pneumonia, so we will continue his antibiotics; actually I am going to put him on Rocephin, but since he acquired it in the hospital, I guess I will put him on a combination of Rocephin and Levaquin. Continue his physical therapy. Social Service involved, looking for rehab opportunities. Hopefully, he will be ready go here in a couple days. We want to make sure his pneumonia radiographically and clinically appears better. cc: Warner Altman MD
[2019-09-08] MEDS: LEVAQUIN PO SCH (10:43)
[2019-09-08] MEDS: ROCEPHIN 1 GM in NS 50 ML IV SCH (10:48)
[2019-09-08] MEDS: NS 1,000 ML IV SCH ×2 (10:48→18:43)
[2019-09-09] MEDS: MORPHINE IV PRN (00:05)
[2019-09-09] MEDS: TYLENOL PO SCH ×2 (04:33→08:15)
[2019-09-09] MEDS: PRILOSEC PO SCH (07:01)
[2019-09-09] MEDS: LOPRESSOR PO SCH (08:15)
[2019-09-09] MEDS: LEVAQUIN PO SCH (08:15)
[2019-09-09] MEDS: ROCEPHIN 1 GM in NS 50 ML IV SCH (10:17)
[2019-09-09 11:29] VITALS: BP 142/94
[2019-09-09 12:31] LABS: BASO# 0.05 X1000 (0.0-0.2); BASO% 0.4 % (0.0-0.8); EOS# 0.04 X1000 (0.0-0.7); EOS% 0.3 % (0.0-10.0); HEMATOCRIT 37.3 % (42.0-52.0); HEMOGLOBIN 11.3 g/dL (14.0-18.0); IMM GRAN# 0.07 X1000 (0.0-0.04); IMM GRAN% 0.5 % (0.0-0.5); LYMPH# 1.74 X1000 (1.2-3.4); LYMPH% 12.9 % (20.5-51.1); MCH 23.3 PG (27-31); MCHC 30.3 g/dL (33-37); MCV 76.7 FL (81-99); MONO# 0.96 X1000 (0.11-0.59); MONO% 7.1 % (1.7-9.3); MPV 9.9 FL (7.4-10.4); NEUT# 10.59 X1000 (1.4-6.5); NEUT% 78.8 % (42.2-75.2); PLT 528 X1000 (130-400); RBC 4.86 XMIL (4.7-6.1); RDW 16.9 % (11.5-14.5); WBC 13.45 X1000 (4.8-10.8)
[2019-09-09 12:56] LABS: AGAP 13; BUN 20 mg/dL (8-22); CALCIUM 9.1 mg/dL (8.8-10.2); CHLORIDE 99 mmol/L (98-107); COSMO 272; ESTIMATED GFR > 60; GLUCOSE 122 mg/dL (70-104); POTASSIUM 3.8 mmol/L (3.5-5.1); SODIUM 134 mmol/L (136-145); TCO2 22 mmol/L (25-35)
[2019-09-09] MEDS ORDERED: GLUCOPHAGE PO SCH (21:00)
[2019-09-09] MEDS ORDERED: ZOCOR PO SCH (21:00)
--- NOTE | 2019-09-10 07:15 | DISCHARGE SUMMARY ---
ADMISSION DATE: 08/31/2019 DISCHARGE DATE: 09/09/2019 DISCHARGE DIAGNOSES: 1. Acute kidney injury on chronic kidney disease. 2. Leukocytosis. 3. Type 2 diabetes. 4. Gastroesophageal reflux disease. 5. Chronic back pain. 6. Gouty arthritis of the left knee. 7. Left subacromial bursitis with probably rotator cuff tear. 8. Generalized weakness and physical deconditioning. 9. Pneumonia, left lower lobe. PROCEDURES PERFORMED: 1. Chest x-ray dated 08/31/2019. Impression: Mild basilar interstitial scarring. No acute changes. 2. Lumbar spine CT scan dated 08/31/2019. Impression: Bilateral L5 pars interarticularis defects with associated grade 1 L5-S1 spondylolisthesis, mild narrowing of the spinal canal at L4-5 by posterior disk bulge and posterior element hypertrophy. 3. Lumbar spine MRI dated 09/02/2019. Impression: Chronic pars defects at L5 with mild anterolisthesis, facet arthropathy at L4-5 and L5-S1 including a small synovial cyst at L4-5 posteriorly but no high-grade stenosis is appreciated. 4. Knee x-ray dated 09/03/2019. Impression: Osteoarthritis with effusion. 5. Shoulder x-ray dated 09/03/2019. Impression: Osteoarthritis. 6. Chest x-ray dated 09/08/2019. Impression: Left lower lobe pneumonia. HOSPITAL COURSE: A 68-year-old, male with a past medical history of diabetes, CKD, GERD, total knee replacement in April 2019, presented to the emergency department with multiple complaints. As per the patient, he has a history of chronic pain, low back pain as well as knee pain. He was placed on Mobic, Lasix, hydrochlorothiazide, and lisinopril. After surgery, he ended up being hospitalized with acute kidney injury. Medications were held. He was hydrated and he did return back to his baseline. He states at the moment of admission that he was not taking Mobic anymore but he has been having an increase of his knee pain and low back pain to the point that it was really difficult to walk. He has been having some assistance to get up. In the emergency department, the EMS reported to the ER staff that the patient was unable to be discharged because he was too weak to hold his weight up on his legs. He denied any numbness of his legs or feet. No change in sensation. He did not lose any bowel movements or bladder control. No fever. No chills. He was admitted with acute kidney injury on chronic kidney disease, also leukocytosis but at that time, he did not have any source of infection. We put him on Prilosec due to his GERD and some medication for his chronic back pain. Neurology was consulted because of his left lower leg pain that was more prominent at the level of the knee but neurology department did not find any neurological deficit to account for his difficulty with standing and walking. There is clinical evidence of peripheral neuropathy, probably because of the diabetes. For his chronic back pain, it could be related to his chronic radiculopathy. Orthopedic surgery evaluated this patient and they found out that this patient has left knee osteoarthritis with effusion and left subacromial bursitis with probably rotator cuff tear. They aspirated his knee and also they put an intra-articular steroid injection as well as an injection in the subacromial place to help with his pain. The patient agreed with that. The patient tolerated well the procedure. He was improving on a daily basis. Because of his weakness, we asked Mr. Moy to go to a rehab center and he agreed with that but then he was back and forth with the decision. Today, he told me that he wanted to go home. His last x-ray showed some pneumonia at the level of the left lower lobe but I do believe this could be related also to scarring and/or atelectasis, but his white blood cell count is slightly elevated. He is not coughing. He is not having fever or chills. He is not having shortness of breath and actually, he is on room air. He has been placed on antibiotics and he will complete a course of 5 days of antibiotics at home. It has been explained to him that levofloxacin can cause tendinitis and tendon rupture, and also some cardiac arrhythmias due to prolonged QT but he agree with the treatment anyway. He will be discharged home with home health. He does have weakness but he stated that the family members will take care of him, as well as home health. He initially wanted to go to a rehab center as an outpatient but given the current situation with a pandemia, he has decided to go ahead and ask for home health. At the moment of discharge, the patient was in a stable medical condition. PHYSICAL EXAMINATION: Vital Signs: Temperature 97.7 degrees, pulse 75, respiratory rate 17, blood pressure 142/94, oxygen saturation 97% on room air. HEENT: Head normocephalic. No trauma. PERRLA. Neck: Supple. No JVD. No masses. Central trachea. Chest: Clear to auscultation. Some crepitus at the level of the left lung. Cardiovascular: RRR. Abdomen: Soft, nontender, nondistended. Extremities: No edema, no clubbing, no cyanosis. Neurological Examination: This patient is awake, alert, and he has some weakness, mostly at the level of the lower extremities. LABORATORY DATA: WBC 13.4, hemoglobin 11.3, hematocrit 37.3, platelets 528,000. Sodium 134, potassium 3.8, chloride 99, bicarbonate 22, BUN 20, creatinine 1, glucose 122, calcium 9.1. DISCHARGE MEDICATIONS: Amlodipine 5 mg p.o. daily, levofloxacin 750 mg p.o. daily for 5 days, milk of magnesia as needed, metformin 500 mg p.o. b.i.d., metoprolol 100 mg p.o. daily, omeprazole 40 mg p.o. daily, simvastatin 40 mg p.o. at bedtime, tamsulosin 0.4 mg p.o. daily, and trazodone 50 mg p.o. at bedtime. FOLLOWUP: The patient will follow up with Dr. Perdomo in around 2 months and also follow up with his primary care provider on 09/18/2019 at 3 p.m. cc: Porfirio Fontanez MD
[2019-09-10] MEDS ORDERED: FLOMAX PO SCH (09:00)
[2019-09-10] MEDS ORDERED: NORVASC PO SCH (09:00)
== END 2019-09-09 15:56 | disposition home health service (06) | DRG 682 ==
LOC: ED 12:38 → 3N 17:18 → SUATTDRO 17:18
PROVIDERS: ATTEND Internal Medicine